=== PATIENT | female | born 1970 | race Caucasian/White ===

== ENCOUNTER → 2016-10-14 | Outpatient (CLI) | payer MEDICARE, MEDICAID ==
[~2016-10-14] MED LIST: AMANTADINE100 MG PO; AMITRIPTYLINE 225 MG PO; AVONEX30 MCG/0.5 MR; BACTRIM DS 8001 TAB PO; CITALOPRAM40 M1 PO; CLARITIN 10MG T10 MG PO; DIFLUCAN150 MG PO; GABAPENTIN300 M1 PO; IBUPROFEN200 MG PO; IBUPROFEN800 MG PO; MACROBID100 M3 PO; NORCO 325 MG-51 TAB PO; PEN-VK500 MG PO; PYRIDIUM 200MG200 MG PO; SEPTRA DS 800 M1 TAB PO; TESSALON PERLE100 M1 PO; ZITHROMAX Z PA250 MG PO; ZOFRAN ODT4 MG PO
[2016-10-14 14:18] LABS: HEMOGLOBIN 12.8 g/dL (12.2-16.2); LYMPH # 1.4 K/mm3 (0.7-4.5)
[2016-10-14 15:46] LABS: BUN 11 mg/dL (7-18)
[2016-10-14 15:47] LABS: GFR (ESTIMATED) 109 ML/MIN (59-)
== END ==
LOC: LAB 12:41
PROVIDERS: Nurse Practitioner Family
DX: G35 Multiple sclerosis (principal); E78.5 Hyperlipidemia, unspecified

== ENCOUNTER 2016-12-29 20:56 | Emergency (ER) | payer MEDICARE, MEDICAID ==
[~2016-12-29] VITALS: Ht 175.3 cm; Wt 117.9 kg
--- OUTSIDE RECORDS SUMMARY | 2016-12-29 21:05 | External Medical Summary Rpt ---
Author Author , GEOFF NICOLEDANITA Address Unknown Phone [email or web address] Care Team Providers Care Printed Circuit Boards Pinner Name Role Phone [facility], Unavailable Unavailable [employer] [facility], [place], Unavailable Unavailable [employer] [facility], [employer] BEINEKE, BEINEKE Unavailable Unavailable CARCAMO ANUM, CARCAMO Unavailable Unavailable ANUM BENAVIDES MAT, BENAVIDES MAT Unavailable Unavailable CELLAROSI - YORBA Unavailable Unavailable PAT, CELLAROSI - YORBA PAT [facility] Unavailable Unavailable [facility] Unavailable [facility]available [facility] CHALKLEY, CHALKLEY Unavailable Unavailable [facility], Unavailable Unavailable [facility] VERONIKA GIN, VERONIKA Unavailable Unavailable GIN NIRANJAN CORNELIA, NIRANJAN Unavailable Unavailable CORNELIA MAKAYLA KAYLIN, Unavailable Unavailable MAKAYLA KAYLIN BERRY NAN, BERRY Unavailable Unavailable NAN FILI CORNELIA, FILI Unavailable Unavailable CORNELIA FILI CORNELIA, FILI Unavailable Unavailable CORNELIA [facility] Unavailable Unavailable HOSPITA, [facility] NARCISO RHO, NARCISO Unavailable Unavailable RHO PRIETO GAR, PRIETO Unavailable Unavailable GAR [facility] Unavailable Unavailable INC, [facility] Unavailable Unavailable [facility] NIMESH DYLON, NIMESH Unavailable Unavailable DYL[facility], Unavailable Unavailable [facility] Unavailable Unavailable CENTER, [facility] MEGAN SAC, MEGAN SAC Unavailable Unavailable [facility] Un[facility] Unavailable GROUP PS, [facility] Un[facility] Unavailable [facility], [facility] KATYA REMINGTON, KAYTA REMINGTON Unavailable Unavailable KATYA REMINGTON, KATYA REMINGTON Unavailable Unavailable [facility] Unavailable Unavailable [facility], [facility] Un[facility], [facility] Un[facility], [facility] Unavailable Unavailable [facility], [facility] Unavailable [facility]available [facility]ING, [facility] JAYSHREE PRIYA, JAYSHREE PRIYA Unavailable Unavailable [facility] Unavailable Unavailable INTERNAL MED, [facility] CHARISMABERS WAL, CHARISMABERS Unavailable Unavailable WAL LUKINS WINSOME, LUKINS Unavailable Unavailable WINSOME [facility] Unavailable Unavailable SERVICES, [facility] MOGHADAMIAN OLIMPIA, Unavailable Unavailable [facility] MOUNA JACEY, MOUNA Unavailable Unavailable JACEY SHELIA KWA, SHELIA KWA Unavailable Unavailable [facility], Unavailable [facility]available [facility], [facility] RECHTIN SUPERVISOR PROCESS TESTING, RECHTIN Unavailable Unavailable SUPERVISOR PROCESS TESTING RENUSCH, RENUSCH Unavailable Unavailable SCALF ALEXEY, SCALF ALEXEY Unavailable Unavailable VICTOR BEATRIZ, VICTOR Unavailable Unavailable BEATRIZ ALVAREZ NATHAN, ALVAREZ NATHAN Unavailable Unavailable [facility] ANGELITA OLIMPIA, ANGELITA Unavailable Unavailable [facility], Unavailable Unavailable [facility] WALKER FOR, WALKER Unavailable Unavailable FOR [facility], [facility] Unavailable Unavailable MENDOZA ABEL, MENDOZA Unavailable Unavailable ABEL YOUNG JULIANN, YOUNG Unavailable Unavailable JULIANN ZIRONNIE MACKAY EDW, Unavailable Unavailable GEOVANNY MACKAY EDW BRIAN MAT, BRIAN MAT Unavailable Unavailable Purpose Continuity of Care Document - 04-06-2011 through 2016 Problems Code Diagnosis DOS Provider Status R1030 LOWER 08-14-2016 [facility] UNSPECIFIED R109 UNSPECIFIED 08-14-2016 [facility] R110 NAUSEA 08-14-2016 [facility] G35 MULTIPLE 05-10-2016 [facility] J0190 ACUTE 04-06-2016 [facility] SINUSITIS [facility], UNSPECIFIED PLLC J069 ACUTE UPPER 04-06-2016 [facility] RESPIRATORY [facility] INFECTION UNSPECIFIED M791 MYALGIA 04-06-2016 [facility] E785 HYPERLIPIDE 10-31-2015 [facility] UNSPECIFIED INC F55466 PAIN IN 10-21-2015 [facility] UNSPECIFIED [facility] ANKLE INTERNAL MED Z1231 ENCOUNTER 10-21-2015 [facility] SCREENING [facility] MAMMO MALIG INTERNAL NEOPLASM MED BREAST Z6841 BODY MASS 10-21-2015 [facility] INDEX BMI SHELBY 40.0-44.9 INTERNAL ADULT MED N3000 ACUTE 05-13-2015 [facility] CYSTITIS [facility], WITHOUT PLLC HEMATURIA N390 URINARY 05-13-2015 [facility] TRACT [facility], INFECTION PLLC SITE NOT SPECIFIED B76523 ACUTE 04-04-2015 [facility] W/O HOSPITAL RUPT EAR DRUM UNS EAR R05 COUGH 04-04-2015 [facility] J0100 ACUTE 03-20-2015 [facility] MAXILLARY PHYSIC[facility]ANS, SINUSITIS PLLC UNSPECIFIED K029 DENTAL 03-20-2015 [facility] UNSPECIFIED INC 340 MULTIPLE 09-10-2014 [facility] 72802 NEUROGENIC 09-10-2014 [facility], SERV NOS FOUNDATION 3862 VERTIGO OF 04-16-2014 [facility] SERV ORIGIN [facility] 92814 LOSS OF 04-16-2014 [facility] LABYRINTHIN SERV E [facility] REACTIVITY UNILATERAL 05607 UNSPECIFIED 04-16-2014 [facility] TINNITUS SERV [facility] 5990 URINARY 03-06-2014 [facility] INFECTION PHYS SITE NOT SPECIFIED 7881 DYSURIA 03-06-2014 [facility] PHYS 7804 DIZZINESS 02-22-2014 [facility] GIDDINESS FOUNDATIO 4610 ACUTE 02-06-2014 [facility] MAXILLARY SINUSITIS 26204 OTHER 01-09-2014 [facility] WINSOME CONDITIONS OF BRAIN 04713 UNSPECIFIED 12-10-2013 [facility] PERIPHER[facility] SERV VERTIGO FOUNDATION 41578 MUSCLE 12-10-2013 [facility] WE[facility]NESS SERV (GENERALIZE FOUNDATION D) 7802 SYNCOPE AND 12-10-2013 [facility] COLLAPSE [facility] 7840 HEADACHE 12-10-2013 [facility] 6926 CONTACT 2013 [facility] DERMATITIS& PHYSICIANS OTHER GROUP ECZEMA DUE TO PLANTS 90143 OTH NONSPC 12-22-2012 KATYA MACEDO ABN FINDNG RAD&OTH EXM BODY STRUCTURE 98804 PAIN IN 10-16-2012 [facility] JOINT, ORTHOPAEDIC ANKLE AND S PLC FOOT 2768 HYPOPOTASSE 09-08-2012 [facility] 63795 LEUKOCYTOPE 09-08-2012 [facility] UNSPECIFIED WAVERLY 10080 LEUKOCYTOSI 09-08-2012 [facility] UNSPECIFIED HOSPITA 68677 SPASM OF 09-08-2012 [facility] 04563 CRAMP OF 09-08-2012 [facility] HOSPITA 26392 NAUSEA WITH 09-03-2012 [facility] 98741 DIARRHEA 09-03-2012 [facility] 03673 ABDOMINAL 09-03-2012 [facility] PAIN, LEFT EMERGENCY UPPER SERVICES QUADRANT 4619 ACUTE 08-31-2012 [facility] SINUSITIS, HEALTHCARE UNSPECIFIED CENTER 462 ACUTE 08-31-2012 [facility], [facility] 7291 UNSPECIFIED 08-31-2012 [facility] MYOSITIS 04094 OTHER 08-31-2012 [facility] MALAISE [facility] [employer] [facility]ING 64625 NAUSEA 08-31-2012 [facility]ALTHCARE CENTER 13956 VOMITING 08-31-2012 [facility]ALTHCARE CENTER 0340 STREPTOCOCC 08-16-2012 [facility] HOPPER SORE EMERGENCY THROAT SERVICES 42033 UNSPECIFIED 08-16-2012 [facility] 66970 OTHER 08-16-2012 [facility] DISEASES OF COMMUNITY NASAL HOSPITA CAVITY AND SINUSES 8260 CLOSED 05-24-2012 [facility] FRACTURE OF EMERGENCY ONE OR SERVICES MORE PHALANGES OF FOOT 08567 CONTUSION 05-24-2012 [facility] OF FOOT EMERGENCY SERVICES 5225 PERIAPICAL 03-16-2012 [facility] WITHOUT SINUS 5259 UNSPECIFIED 03-16-2012 [facility] DISORDER SERV TEETH&SUPPO FOUNDATIO RTING STRUCTURES 67515 OT COMPS 02-29-2012 [facility] DUE OT ORTHOPAEDIC INTRL S PLC ORTHOPED DEVICE IMPL&GFT 7295 PAIN IN 01-13-2012 [facility] SOFT COMMUNITY TISSUES OF HOSPITA LIMB V1251 PERSONAL 12-21-2011 [facility] HISTORY, [facility] VENOUS HOSPITA THROMBOSIS AND EMBOLISM V5401 ENCOUNTER 12-21-2011 [place] [facility] OF ANESTHESIA INTERNAL GROUP PS FIXATION DEVICE V7283 OTHER 12-20-2011 [facility] SPECIFIED [facility] PRE-OPERATI HOSPITA VE EXAMINATION 94019 NONUNION OF 12-09-2011 [facility] 22927 OPEN 12-09-2011 [facility] FRACTURE SERV UNSPECIFIED FOUNDATIO PART FIBULA W/TIBIA 90054 [facility] 12-09-2011 [facility] INT ORTHOPEDIC DEVC IMPL&GFT 60882 INF&INFLAM 12-09-2011 [facility] REACTION SERV DUE INTRL FOUNDATIO JOINT PROSTHESIS V5409 OT 12-09-2011 [facility] SERV INVOLVING FOUNDATIO INTERNAL FIXATION DEVICE V5416 AFTERCARE 12-09-2011 [facility] TRAUMATIC FOUNDATIO FRACTURE LOWER LEG 92137 OTHER 12-02-2011 [facility] CHRONIC EMERGENCY PAIN SERVICES V1551 PERSONAL 12-02-2011 [facility] HISTORY OF EMERGENCY TRAUMATIC SERVICES FRACTURE 8920 OPEN WOUND 10-22-2011 [facility] FT NO TOE EMERGENCY ALONE SERVICES WITHOUT MENTION COMP E8490 PLACE OF 10-22-2011 [facility] OCCURRENCE, [facility] HOME HOSPITA E9208 ACC CAUSED 10-22-2011 [facility] SPEC EMERGENCY CUT&PIERCIN SERVICES G INSTRUM/OBJ S 11203 CLOSED 09-13-2011 [facility] [place] FRACTURE OF ORTHOPAEDIC SHAFT OF S PLC TIBIA 28210 AC VERNA 08-11-2011 [facility]MBO & COMMUNITY THROMB HOSPITA UNSPEC DEEP VES LOWER EXT V5861 LONG-TERM 08-11-2011 [facility] (CURRENT) [facility] USE OF HOSPITA ANTICOAGULA NTS V571 OTHER 07-05-2011 [facility] PHYSICAL COMMUNITY THERAPY HOSPITA V4589 OTHER 07-01-2011 [facility] POSTSURGICA COMMUNITY L STATUS HOSPITA OTHER 8248 UNSPECIFIED 04-06-2011 [place] [facility] FRACTURE OF GROUP PSC ANKLE V537 FITTING AND 04-06-2011 [facility] [place] [facility] OF ORTHOPEDIC DEVICE Medications Na ND Rx Da Fi Fi Am Da Di Ph RX Ph St me C No te ll ll ou ys ag ar # ys at rm s nt no ma ic us Or Da si cy ia de te s n re d LO 00 06 06 30 30 00 RI Ac RA 78 -0 -3 .0 00 TE ti TA 15 1- 0- 00 01 ve DI 07 20 20 15 AI NE 70 17 17 49 D 1 41 PH 10 AR MA MG CY TA #3 BL 93 ET 8 Procedures Procedure [place] [address] [facility] ABDOMEN & MEDICAL PELVIS IMAGING W/O ASS CONTRAST MATERIAL COLLECTIO 96726 ANY AGARWAL N VENOUS 6 [facility] BLOOD INC INC VENIPUNCT URE COMPREHEN 10028 ANY [facility]WAL SIVE 6 [facility] METABOLIC INC INC PANEL LIPID 83350 ANY AGARWAL PANEL 6 [facility]OS[facility] INC INC BLOOD 75331 ANY AGARWAL COUNT 6 [facility] COMPLETE INC INC AUTO&AUTO DIFRNTL WBC SUSCEPTIB 27069 ANY AG[facility]WAL LTY STDY 5 [facility] ANTIMICRB INC INC IAL MICRO/AGA R DILUTJ URNLS DIP 39415 ANY AGARWAL 5 [facility] STICK/TAB INC INC LET REAGENT AUTO MICROSCOP Y CULTURE 93262 ANY AGARWAL BACTERIAL 5 [facility] INC INC QUANTTATI VE COLONY COUNT URINE CULTURE 70717 ANY AG[facility] BCT 5 [facility] ISOL&PRSM INC INC PTV ID ISOLATE EA URINE INJECTION J0696 ANY NIRANJAN 5 [facility] NE SODIUM PER 250 MG INJECTION J1040 ANY NIRANJAN 5 [facility] DNISOLONE ACETATE 80 MG THERAPEUT 15653 ANY NIRANJAN IC 5 [facility] TIC/DX INJECTION SUBQ/IM COMPUTER- 42299 ANY AGARWAL AIDED 5 [facility] DETECTION INC INC SCREENING MAMMOGRAP HY SCREENING G0202 ANY AGARWAL 5 [facility] MAMMOGRAP INC INC HY NICOLÁS INCL CAD WHEN PERFORMD COLLECTIO 74315 ANY Mendoza VENOUS 5 MEM HOS[facility]OS[facility] BLOOD INC INC VENIPUNCT URE CYANOCOBA 03447 ANY AGARWAL SHANIQUA 5 [facility] VITAMIN INC INC B-12 LIPID 37743 ANY AGARWAL PANEL 5 [facility] INC INC BLOOD 82701 ANY AGARWAL COUNT 5 [facility] COMPLETE INC INC AUTO&[place] [address] ANY AGARWAL THYROID 5 [facility] STIMULATI INC INC NG HORMONE TSH COMPREHEN 94284 ANY AGARWAL SIVE 5 [facility] METABOLIC INC INC PANEL COMPREHEN 65707 [facility] 5 Y Y [facility] PANEL BLOOD 34114 [facility] 5 Y Y [facility] AUTOMATED COLLECTIO 00750 [facility] VENOUS 5 Y Y BLOOD [facility] VENIPUNCT URE COLLECTIO 93612 ANY AGARWAL N VENOUS 5 [facility] [place] [address] ANY AGARWAL THYROID 5 MEM HOSP [facility] HOS[facility] STIMULATI INC INC NG HORMONE TSH BLOOD 76356 ANY AGARWAL COUNT 5 MEM HOS[facility]OS[facility] COMPLETE INC INC AUTO&AUTO DIFRNTL WBC HEPATIC 94931 ANY AGARWAL FUNCTION 5 MEM HOS[facility] HOSP PANEL INC INC VSTBLR 98713 [facility] BENAVIDES MAT FUNCJ 4 MEDICAL NYSTAG SERV FOVL&PERP FOUNDATIO H STIMJ N OSCIL TRK CALORIC 66729 MIKE BENAVIDES MAT VESTIBULA 4 MEDICAL R TEST EA SERV FOUNDATIO IRRIGATIO N N W/RECORD SUSCEPTIB 88885 ANY AGARWAL LTY STDY 4 MEM HOSP [facility] HOS[facility] ANTIMICRB INC INC IAL MICRO/AGA R DILUTJ URNLS DIP 46418 ANY AGARWAL 4 [facility]OS[facility] STICK/TAB INC INC LET REAGENT AUTO MICROSCOP Y CULTURE 08321 ANY AGARWAL BCT 4 MEM HOS[facility]OS[facility] ISOL&PRSM INC INC PTV ID ISOLATE EA URINE CULTURE 11865 ANY AGARWAL BACTERIAL 4 MEM HOS[facility]OS[facility] INC INC QUANTTATI VE COLONY COUNT URINE URINE 18951 ANY AGARWAL 4 MEM HOS[facility] HOS[facility] TEST INC INC VISUAL COLOR CMPRSN METHS INJECTION J1040 [facility] PENN 4 CORNELIA CORNELIA METHYLPRE DNISOLONE ACETATE 80 MG THERAPEUT 95937 [facility] IC 4 CORNELIA CORNELIA PROPHYLAC TIC/DX INJECTION SUBQ/IM MRI BRAIN 00893 [facility] BRAIN 4 Y Y STEM W/O HOSPITAL HOSPITAL W/CONTRAS T MATERIAL INJECTION A9579 [facility] 4 Y Y [facility] M BASED MR CONTRAST NOS ML INJECTION J2765 [facility] 4 Y Y METOCLOPR [facility] AMIDE HCL UP TO 10 MG COMPREHEN 92598 [facility] SIVE 4 Y Y METABOLIC [facility] PANEL INFUSION J7050 [facility] NORMAL 4 Y Y SALINE [facility] SOLUTION 250 CC INJECTION J1885 [facility] 4 Y Y KETOROLAC [facility] TROMETHAM INE PER 15 MG INJ J2930 [facility] METHYLPRD 4 Y Y NISOLONE [facility] SODIUM SUCCNAT TO 125 MG BLOOD 08975 [facility] COUNT 4 Y Y COMPLETE [facility] AUTOMATED ECG 53759 [facility] ROUTINE 4 Y Y ECG [facility] W/LEAST 12 LDS TRCG ONLY W/O I&R ECG 89090 [facility] ROUTINE 4 MEDICAL NAN ECG SERV W/LEAST FOUNDATIO 12 LDS N I&[place] [address] [facility] 4 Y Y [facility] INJECTION J1100 [facility] 4 PHYSICIAN PHYSICIAN DEXAMETHO S GROUP S GROUP SONE SODIUM PHOSPHATE 1 MG THERAPEUT 83972 [facility] IC 4 PHYSICIAN PHYSICIAN PROPHYLAC S GROUP S GROUP TIC/DX INJECTION SUBQ/IM INJECTION J1040 [facility] 4 PHYSICIAN PHYSICIAN METHYLPRE S GROUP S GROUP DNISOLONE ACETATE 80 MG MRI BRAIN 87742 SHELIA KWA SHELIA KWA BRAIN 4 STEM W/O W/CONTRAS T MATERIAL SBSQ 29059 [facility] 3 DYLON DYLON CARE/DAY 25 MINUTES MRI BRAIN 61982 KATYA MACEDO BRAIN 3 STEM W/O W/CONTRAS T MATERIAL MRI 46769 KATYA MACEDO SPINAL 3 CANAL THORACIC W/O & W/CONTR MATRL INITIAL 64717 [facility] 3 DYLON DYLON CARE/DAY 70 MINUTES MRI 13342 KATYA MACEDO SPINAL 3 CANAL CERVICAL W/O & W/CONTR MATRL RADIOLOGI 41758 [facility] C 3 [place] [facility] EXAMINATI ORTHOPAED ON TIBIA [facility] & FIBULA 2 VIEWS BLOOD 97708 [facility] COUNT 3 N N COMPLETE [facility] AUTOMATED HOSPITA HOSPITA BLOOD 21269 [facility] COUNT 3 N N SMEAR [facility] MCRSCP HOSPITA HOSPITA W/MNL DIFRNTL WBC COUNT BASIC 11103 [facility] METABOLIC 3 N N PANEL [facility] CALCIUM HOSPITA HOSPITA TOTAL COLLECTIO 51281 [facility] N VENOUS 3 N N BLOOD [facility] VENIPUNCT HOSPITA HOSPITA URE HETEROPHI 43296 [facility] LE 3 AMERIC AMERIC ANTIBODIE HOLDING HOLDING S SCREEN GENERAL 18655 [facility] 3 AMERIC AMERIC PANEL HOLDING HOLDING ANTIBODY 57051 [facility] CYTOMEGAL 3 AMERIC AMERIC OVIRUS HOLDING HOLDING CMV IGM ANTIBODY 44159 [facility] CYTOMEGAL 3 AMERIC AMERIC OVIRUS HOLDING HOLDING CMV IAADIADOO 82844 [place] [facility] LABS, [place] [address] [facility] CE[facility] PHLX/PHLG 2 EMERGENCY - YORBA OTH/THN SERVICES PAT GRT TOE W/O MANJ RADEX 36399 [facility] FOOT 2 N N [facility] MINIMUM 3 HOSPITA HOSPITA VIEWS INJECTION A9579 [facility] 2 Y Y [facility] M BASED MR CONTRAST NOS ML MRI BRAIN 95551 [facility] BRAIN 2 Y Y STEM W/O [facility] W/CONTRAS T MATERIAL INFUSION J7030 [facility] NORMAL 2 Y Y [facility] SOLUTION 1000 CC RADEX 40283 [facility] ANKLE 2 [place] [facility] COMPLETE ORTHOPAED MINIMUM 3 ICS PLC VIEWS DUP-SCAN 87800 [facility] XTR VEINS 2 N N [facility] UNILATERA HOSPITA HOSPITA L/LIMITED STUDY RADEX 58869 [facility] ANKLE 2 [place] AB[place] COMPLETE ORTHOPAED MINIMUM 3 ICS PLC VIEWS INJECTION J3010 [facility] FENTANYL 2 N N CITRATE [facility] 0.1 MG HOSPITA HOSPITA INJECTION J2250 [facility] 2 N N MIDAZOLAM [facility] HCL PER HOSPITA HOSPITA 1 MG REMOVAL 24435 [facility] IMPLANT 2 [place] AB[facility] DEEP ORTHOPAED ICS PLC RADIOLOGI 23656 [facility] C 2 N N EXAMINATI [facility] ON ANKLE HOSPITA HOSPITA 2 VIEWS ANES OPEN 65516 [place] [facility] PROC 2 ANESTHESI BEATRIZ BONES A GROUP LOWER PS LEG/ANKLE /FOOT NOS FLUOROSCO 29631 [facility] PY SPX UP 2 N N TO 1 [facility] HOUR HOSPITA HOSPITA PHYS/QHP TIME COLLECTIO 87159 [facility] N VENOUS 2 N N BLOOD [facility] VENIPUNCT HOSPITA HOSPITA URE BLOOD 87274 [facility] COUNT 2 N N [facility] AUTO&AUTO HOSPITA HOSPITA DIFRNTL WBC GONADOTRO 90465 [facility] PIN 2 N N [facility] HOSPITA HOSPITA QUALITATI VE BASIC 86938 [facility] METABOLIC 2 N N PANEL [facility] CALCIUM HOSPITA HOSPITA TOTAL RADEX 28705 [facility] AN[facility]LE 2 Y Y COMPLETE HOSPITAL HOSPITAL MINIMUM 3 VIEWS RADIOLOGI 70758 [facility] C 2 Y Y EXAMINATI [facility] ON TIBIA & FIBULA 2 VIEWS RADIOLOGI 58509 [facility] [place] BRIAN MAT C 2 RADIOLOGY EXAMINATI ON TIBIA & FIBULA 2 VIEWS RADEX 69747 [facility] [place] BRIAN MAT CALCANEUS 2 RADIOLOGY MINIMUM 2 VIEWS RADEX 69936 [facility] ANKLE 2 [place] AB[facility] COMPLETE ORTHOPAED MINIMUM 3 ICS PLC VIEWS RADEX 59312 [facility] [place] SCALF ALEXEY FOOT 2 RADIOLOGY COMPLETE MINIMUM 3 VIEWS IM ADM 08172 [facility] PRQ ID 2 N N SUBQ/IM [facility] NJXS 1 HOSPITA HOSPITA VACCINE DUP-SCAN 59848 [facility] XTR VEINS 2 N N [facility] UNILATERA HOSPITA HOSPITA L/LIMITED STUDY RADIOLOGI 51405 [facility] C 2 [place] [facility] EXAMINATI ORTHOPAED ON TIBIA [facility] & FIBULA 2 VIEWS DUP-SCAN 38965 [facility] XTR VEINS 2 N N [facility] HOSPITA HOSPITA L/LIMITED STUDY RADIOLOGI 31147 [facility] C 2 [place] EXAMINATI ORTHOPAED ON TIBIA [facility] & FIBULA 2 VIEWS ANK FT L1906 [facility] ORTHOS 2 [facility] MX-LIG ORTHOPAED ORTHOPAED ANK SUPT IC IC PREFB OFF SHELF PROTHROMB 12574 [facility] IN TIME 2 N N [facility] HOSPITA HOSPITA WALKING L4360 [facility] BOOT 2 [facility] PNEUMATC ORTHOPAED ORTHOPAED &/ VACUUM IC IC PREFAB CUSTM FIT RADIOLOGI 22036 [facility] C 2 [place] [facility] EXAMINATI ORTHOPAED ON TIBIA [facility] & FIBULA 2 VIEWS PROTHROMB 78028 [facility] IN TIME 2 N N [facility] HOSPITA HOSPITA PHYSICAL 99081 [facility] THERAPY 2 N N EVALUATIO [facility] N HOSPITA HOSPITA THERAPEUT 91905 [facility] IC PX 1/> 2 N N AREAS [facility] EACH 15 HOSPITA HOSPITA MIN EXERCISES DUP-SCAN 97466 [facility] XTR VEINS 2 N N [facility] L/LIMITED STUDY PROTHROMB 45911 [facility] IN TIME 2 N N [facility] HOSPITA HOSPITA ANKLE L4350 [facility] CONTROL 2 [facility] ORTHOSIS ORTHOPAED ORTHOPAED STIRRUP IC IC STYL RIGID PREFAB RADIOLOGI 98691 MENDOZA Arch[place] 2 ABEL ABEL EXAMINATI ON TIBIA & FIBULA 2 VIEWS PROTHROMB 62350 [facility] IN TIME 1 N N [facility] HOSPITA HOSPITA PROTHROMB 18621 [facility] IN TIME 1 N N [facility] HOSPITA PROTHROMB 80289 [facility] IN TIME 1 N N [facility] HOSPITA HOSPITA RADIOLOGI 83685 [facility] [place] 1 ABEL ABEL EXAMINATI ON TIBIA & FIBULA 2 VIEWS PROTHROMB 07449 [facility] IN TIME 1 N N [facility] HOSPITA HOSPITA DUP-SCAN 46814 [facility] XTR VEINS [facility] N [facility] L/LIMITED STUDY RADIOLOGI 25850 M[facility] [place] 1 ABEL ABEL EXAMINATI ON TIBIA & [place] [address] [facility] 1/> AREAS 1 N N EA 15 [facility] MIN GAIT HOSPITA HOSPITA TRAINJ W/STAIR INJECTION J2275 [facility] MORPHINE 1 N N [facility] PER 10 MG HOSPITA HOSPITA PHYSICAL 85042 [facility] THERAPY 1 N N [facility] N HOSPITA HOSPITA REMOVAL 17556 [facility] DONALDSON IMPLANT 1 ABEL ROMAN DEEP BONE 7807 [facility] GRAFT OF 1 N N [facility] AND [facility] FIBULA HOSPITA HOSPITA OPEN 7936 [facility] REDUCTION 1 N N FRACTURE [facility]ITY [facility] HOSPITA HOSPITA TIBIA&FIB W/INTERNA L FIX INJECTION J2275 [facility] MORPHINE 1 N N [facility] PER 10 MG HOSPITA HOSPITA RADIOLOGI 72674 [facility] MIKE STUART C 1 RADIOLOGY RHO EXAMINATI ON ANKLE 2 VIEWS HOSPITAL G0378 [facility] OBSERVATI 1 N N ON [facility] SERVICE HOSPITA HOSPITA PER HOUR ANES OPEN 72331 MIKE CROOK PROC 1 ANESTHESI I JR EDW BONES A GROUP LOWER PSC LEG/ANKLE /FOOT NOS FLUOROSCO 70736 [facility] PY SPX >1 1 N N [facility] PHYS/QHP HOSPITA HOSPITA TIME RADIOLOGI 19298 [facility] MIKE STUART C 1 RADIOLOGY RHO EXAMINATI ON TIBIA & FIBULA 2 VIEWS REPAIR 75928 [facility] NONUNION/ 1 N N MALUNION [facility] TIBIA W/O HOSPITA HOSPITA GRAFT OPTX 03123 [facility] MENDOZA TIBIAL 1 ABEL ABEL SHFT FX W/PLATE/S CREWS W/WO CERCLAGE INJECTION J2250 [facility] 1 N N [facility] HCL PER HOSPITA HOSPITA 1 MG BLOOD 17204 [facility] COUNT 1 N N [facility] N HOSPITA HOSPITA BLOOD 15123 [facility] COUNT 1 N N HEMATOCRI COMM[facility]ITY [facility] T HOSPITA HOSPITA INJECTION J3010 [facility] FENTANYL 1 N N CITRATE [facility] 0.1 MG HOSPITA HOSPITA UNLISTED 65529 [facility] PROCEDURE 1 N N COMMUNITY COMMUNITY LEG/ANKLE HOSPITA HOSPITA Encounters Encounter Start End Date Code Location Performer Type Date EMERGENCY 92375 [facility] DEPT 7 7 [facility]YSICIAN [facility]IS[facility] HIGH SEVERITY& THREAT FUNC OFFICE 52112 [facility] OUTPATIEN 6 6 MEDICAL T VISIT SERV 40 [facility] MINUTES N HOSP[facility] ANY - 6 6 [facility] T EMERGENCY 88136 NINO [facility] 6 6 PHYSICIAN [facility] S, [facility] T VISIT MODERATE SEVERITY EMERGENCY 20354 ANY 6 6 [facility] DEPART[facility] INC T VISIT LIMITED/M [facility] ANY - 6 6 [facility] OUTPATIEN INC T OFFICE 24271 [place] [facility] 6 6 [facility] T [facility]ISIT INTERNAL 25 MED MINUTES EMERGENCY 16350 ANY 5 5 [facility] DEPARTMEN INC T VISIT LOW/MODER SEVERITY EMERGENCY 76933 NINO PENN 5 5 PHYSICIAN [facility] S, [facility] T VISIT HIGH/URGE NT SEVERITY HOSPITAL ANY - 5 5 [facility] OUTPATIEN INC T OFFICE 34532 ANY OMALLEY 5 5 [facility] T VISIT HOSP[facility] 15 MINUTES EMERGENCY 08752 NINO CAANLES 5 5 PHYSICIAN [facility] S, [facility] T VISIT MODERATE SEVERITY HOSPITAL ANY - 5 5 [facility] OUTPATIEN INC T EMERGENCY 20953 ANY 5 5 [facility] DEPARTMEN INC T VISIT LOW/MODER SEVERITY HOSPITAL ANY - 5 5 [facility] OUTPATIEN INC T HOSPITAL ANY - 5 5 [facility] OUTPATIEN INC T OFFICE 62801 [facility] OUTPATIEN 5 5 Y T VISIT 5 HOSPITAL MINUTES OFFICE 23572 MIKE MOUNA OUTROBERTS CHAPELEN 5 5 MEDICAL JACEY T VISIT SERV 25 FOUNDATIO MINUTES HOSPITAL UNIVERSIT - 5 5 Y [facility] ANY - 5 5 [facility] EMERGENC[facility] 53804 KIT [facility] 4 4 ZACHARY DEPARTMEN EMERGENCY T VISIT PHYS HIGH/URGE NT SEVERITY EMERGENCY 51235 ANY 4 4 [facility] DEPARTMEN INC T VISIT LOW/MODER SEVERITY HOSPITAL ANY - 4 4 [facility] T OFFICE 34066 MIKE BENAVIDES MAT CONSULTAT 4 4 MEDICAL ION SERV NEW/ESTAB FOUNDATIO PATIENT 40 MIN OFFICE 31068 [facility] 4 4 CORNELIA CORNELIA T VISIT 15 [facility] UNIVERSIT - 4 4 Y [facility] T EMERGENCY 90738 MIKE VILLANUEVA 4 4 MEDICAL WAL DEPARTMEN SERV T VISIT FOUNDATIO HIGH/URGE N NT SEVERITY HOSPITAL UNIVERSIT - 4 4 Y [facility] T OFFICE 21949 NIMESH BEAVERS [facility] 4 4 DYLON DYLON T VISIT 25 MINUTES OFFICE 55565 [facility] 4 4 PHYSICIAN T VISIT S GROUP 15 MINUTES HOSPITAL UNIVERSIT [facility] 4 4 Y [facility] T OFFICE 73579 [facility] 4 4 PHYSICIAN T NEW 20 S GROUP MINUTES OFFICE 15951 [facility] 3 3 Y T VISIT 5 HOSPITAL [facility] UNIVERSIT [facility] 3 3 Y [facility] T OFFICE 81756 CARLOS ALBERTO [facility] 3 3 ANUM ROWAN T VISIT 25 MINUTES OFFICE 65431 ANTONIO ALVAREZ [facility] OUTPATIEN 3 3 T VISIT 15 MINUTES OFFICE 01120 [facility] OUTPATIEN 3 3 [place] AB[place] T VISIT ORTHOPAED 25 [facility] MINUTES 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 67183 MIKE MARTELL PRIYA OUTPATIEN 3 3 MEDICAL T VISIT SERV 15 FOUNDATIO MINUTES [facility] EM[facility] 68362 ANUEL CROWELLAROSI 2 2 EMERGENCY - YORBA DEPARTMEN SERVICES PAT T VISIT HIGH/URGE NT SEVERITY EMERGENCY 58205 [facility] 2 2 N DEPARTMEN COMMUNITY T VISIT HOSPITA MODERATE SEVERITY HOSPITAL UNIVERSIT - 2 2 Y [facility] T OFFICE 20632 MIKE DELACRUZ OUTROBERTS CHAPELEN 2 2 MEDICAL T VISIT SERV 25 FOUNDATIO MINUTES EMERGENCY 69472 MIKE RICHARDSON 2 2 MEDICAL JULIANN DEPARTMEN SERV T VISIT FOUNDATIO MODERATE SEVERITY HOSPITAL UNIVERSIT - 2 2 Y [facility] T EMERGENCY 07340 UNIVERSIT 2 2 Y [facility] T VISIT [facility]OW/MODER SEVERITY [facility] 2 2 N [facility] HOSPITA [facility]ICE 46749 [place] MOGHADAM[place] OUTPATIEN 2 2 MEDICAL AN OLIMPIA T NEW 30 SERV MINUTES [facility] UNIVERSIT [facility] 2 2 Y [facility] T OFFICE 55910 [facility] 2 2 [place] T [facility]ISIT ORTHOPAED 15 [facility] 2 2 N [facility] 04489 ANUEL PRIETO 2 2 EMERGENCY GAR [facility] T VISIT HIGH/URGE NT SEVERITY EMERGENCY 74221 [facility] 2 N [facility] T [facility]ISIT [facility] MODERATE SEVERITY OFFICE 37466 [facility] 2 2 [place] VISIT ORTHOPAED 25 [facility] 36099 [facility] N [facility] T [facility]ISIT [facility] MODERATE [facility]VERITY [facility] 43726 [facility] 2 2 [place] T VISIT ORTHOPAED 15 [facility] 98545 [facility] 2 2 [place] VISIT ORTHOPAED 15 [facility] 67427 [facility] 2 2 [place] T [facility]ISIT ORTHOPAED 15 ICS [facility] 2 2 N [facility] N [facility] 2 2 N OUT[facility] 2 2 N [facility] 10580 [facility] 83634 [facility] 1 N T [facility]IT [facility] 21399 [facility] 1 N T [facility]IT [facility] 65880 [facility] 1 1 N T VISIT 5 [facility] 99733 [facility] 1 1 N T VISIT 5 [facility] 1 1 N [facility] 1 1 N OUTPATIEN [facility] 1 1 N INPATIENT [facility] HOS[facility]
--- OUTSIDE RECORDS SUMMARY | 2016-12-29 21:05 | External Medical Summary Rpt ---
Author Author , GEOFF NICOLEDANITA Address Unknown Phone [email or web address] Care Team Providers Care Electrical Technician Instructor Name Role Phone [email or web address], Unavailable Unavailable AisleBuyer, [facility], Unavailable Unavailable [facility], [facility] BEINEKE, BEINEKE Unavailable Unavailable CARCAMO ANUM, CARCAMO Unavailable Unavailable ANUM BENAVIDES MAT, BENAVIDES MAT Unavailable Unavailable CELLAROSI - YORBA Unavailable Unavailable PAT, CELLAROSI - YORBA PAT [facility] Unavailable Unavailable [facility], [facility] Unavailable [facility]available [facility] CHALKLEY, CHALKLEY Unavailable Unavailable [facility], Unavailable Unavailable [facility] VERONIKA GIN, VERONIKA Unavailable Unavailable GIN NIRANJAN CORNELIA, NIRANJAN Unavailable Unavailable CORNELIA MAKAYLA KAYLIN, Unavailable Unavailable MAKAYLA KAYLIN BERRY NAN, BERRY Unavailable Unavailable NAN FILI CORNELIA, FILI Unavailable Unavailable CORNELIA FILI CORNELIA, FILI Unavailable Unavailable CORNELIA [facility] Unavailable Unavailable HOSPITA, [facility] NARCISO RHO, NARCISO Unavailable Unavailable RHO PRIETO GAR, PRIETO Unavailable Unavailable GAR [facility] Unavailable Unavailable INC, [facility] Unavailable Unavailable HOSPITAL, [facility] NIMESH DYLON, NIMESH Unavailable Unavailable DYLON [facility], Unavailable Unavailable [facility] Unavailable Unavailable CENTER, [facility] MEGAN SAC, MEGAN SAC Unavailable Unavailable [facility] Un[facility] Unavailable [facility] PS, [facility] Unavailable Unavailable [facility], [facility] KATYA REMINGTON, KATYA REMINGTON Unavailable Unavailable KATYA REMINGTON, KATYA REMINGTON [...] Unavailable [place] Unavailable Unavailable INTERNAL MED, [facility] CHARISMABERS WAL, CHARISMABERS Unavailable Unavailable WAL LUKINS WINSOME, LUKINS Unavailable Unavailable WINSOME [facility] Unavailable Unavailable SERVICES, [facility] MOGHADAMIAN OLIMPIA, Unavailable Unavailable [facility] MOUNA JACEY, MOUNA Unavailable Unavailable JACEY SHELIA KWA, SHELIA KWA Unavailable Unavailable [facility], Un[facility], [facility] RECHTIN NEONATAL SOCIAL WORKER, RECHTIN Unavailable Unavailable NEONATAL SOCIAL WORKER RENUSCH, RENUSCH Unavailable Unavailable SCALF ALEXEY, SCALF ALEXEY Unavailable Unavailable VICTOR BEATRIZ, VICTOR Unavailable Unavailable BEATRIZ ALVAREZ NATHAN, ALVAREZ NATHAN Unavailable Unavailable [facility] ANGELITA OLIMPIA, ANGELITA Unavailable Unavailable [facility], Unavailable Unavailable [facility] FOR, WALKER Unavailable Unavailable [facility] [...] PHYSICIANS, PAIN PLLC UNSPECIFIED R109 UNSPECIFIED 08-14-2016 [facility] R110 NAUSEA 08-14-2016 [facility] G35 MULTIPLE 05-10-2016 [facility] J0190 ACUTE 04-06-2016 [facility] SINUSITIS PH[facility]ANS, UNSPECIFIED PLLC J069 ACUTE UPPER 04-06-2016 [facility] RESPIRATORY PLL[facility] INFECTION UNSPECIFIED M791 MYALGIA 04-06-2016 [facility] INC E785 HYPERLIPIDE 10-31-2015 [facility] HOSP UNSPECIFIED INC [id number] PAIN IN 10-21-2015 [facility] UNSPECIFIED [place] ANKLE INTERNAL MED Z1231 ENCOUNTER 10-21-2015 [facility] SCREENING [place] MAMMO MALIG INTERNAL NEOPLASM MED BREAST Z6841 BODY MASS 10-21-2015 [facility] INDEX BMI [place] 40.0-44.9 INTERNAL ADULT MED N3000 ACUTE 05-13-2015 [facility] CYSTITIS [facility]ANS, WITHOUT PLLC HEMATURIA N390 URINARY 05-13-2015 [facility] TRACT [facility], INFECTION PLLC SITE NOT SPECIFIED E02904 ACUTE 04-04-2015 [facility] W/O HOSPITAL RUPT EAR DRUM UNS EAR R05 COUGH 04-04-2015 [facility] J0100 ACUTE 03-20-2015 [facility] MAXILLARY PHYSICIANS, SINUSITIS PLLC UNSPECIFIED K029 DENTAL 03-20-2015 [facility] UNSPECIFIED INC 340 MULTIPLE 09-10-2014 [facility] 52308 NEUROGENIC 09-10-2014 [place] [facility] SERV NOS [facility] 3862 VERTIGO OF 04-16-2014 [place] [facility] ORIGIN [facility] 37140 LOSS OF 04-16-2014 [place] [facility] LABYRINTHIN SERV E [facility] REACTIVITY UNILATERAL 83805 UNSPECIFIED 04-16-2014 [place] [facility]INNITUS [facility] 5990 URINARY 03-06-2014 [facility] INFECTION PHYS SITE NOT SPECIFIED 7881 DYSURIA 03-06-2014 [facility] PHYS 7804 DIZZINESS 02-22-2014 [place] [facility] GIDDINESS FOUNDATIO 4610 ACUTE 02-06-2014 [facility] MAXILLARY SINUSITIS 02254 OTHER 01-09-2014 [facility] WINSOME CONDITIONS OF BRAIN 82069 UNSPECIFIED 12-10-2013 [place] [facility]HER[facility] VERTIGO [facility] 30767 MUSCLE 12-10-2013 [place] [facility] SERV (GENERALIZE [facility]OUND[facility] D) 7802 SYNCOPE AND 12-10-2013 [place] [facility] 7840 HEADACHE 12-10-2013 [facility] 6926 CONTACT 2013 [facility] DERMATITIS& PHYSICIANS OTHER GROUP ECZEMA DUE TO PLANTS 22032 OTH NONSPC 12-22-2012 KATYA MACEDO ABN FINDNG RAD&OTH EXM BODY STRUCTURE 17209 PAIN IN 10-16-2012 [facility] [place] JOINT, [facility]IC ANKLE AND S PLC FOOT 2768 HYPOPOTASSE 09-08-2012 [facility] 83630 LEUKOCYTOPE 09-08-2012 [facility] UNSPECIFIED ELMA 91959 LEUKOCYTOSI 09-08-2012 [facility] UNSPECIFIED HOSPITA 24686 SPASM OF 09-08-2012 [facility] 14064 CRAMP OF 09-08-2012 [facility] HOSPITA 47995 NAUSEA WITH 09-03-2012 [facility] 65702 DIARRHEA 09-03-2012 [facility] 90635 ABDOMINAL 09-03-2012 [facility] PAIN, LEFT EMERGENCY UPPER SERVICES QUADRANT 4619 ACUTE 08-31-2012 [facility] SINUSITIS, HEALTHCARE UNSPECIFIED CENTER 462 ACUTE 08-31-2012 [facility] 7291 UNSPECIFIED 08-31-2012 [facility] MYOSITIS 77137 OTHER 08-31-2012 [facility] [employer] [employer] 43292 NAUSEA 08-31-2012 [facility]ALTHCARE CENTER 55851 VOMITING 08-31-2012 [facility]ARE CENTER 0340 STREPTOCOCC 08-16-2012 [facility] HOPPER SORE EMERGENCY THROAT SERVICES 63650 UNSPECIFIED 08-16-2012 [facility] 99275 OTHER 08-16-2012 [facility] DISEASES OF COMMUNITY NASAL HOSPITA CAVITY AND SINUSES 8260 CLOSED 05-24-2012 [facility] FRACTURE OF EMERGENCY ONE OR SERVICES MORE PHALANGES OF FOOT 52130 CONTUSION 05-24-2012 [facility] OF FOOT EMERGENCY SERVICES 5225 PERIAPICAL 03-16-2012 [facility] WITHOUT SINUS 5259 UNSPECIFIED 03-16-2012 [place] [facility] DISORDER [facility] TEETH&SUPPO FOUNDATIO RTING STRUCTURES 27297 OT COMPS 02-29-2012 [facility] [place] DUE OT ORTHOPAEDIC INTRL S PLC ORTHOPED DEVICE IMPL&GFT 7295 PAIN IN 01-13-2012 [facility] SOFT COMMUNITY TISSUES OF HOSPITA LIMB V1251 PERSONAL 12-21-2011 [facility] HISTORY, [facility] VENOUS HOSPITA THROMBOSIS AND EMBOLISM V5401 ENCOUNTER 12-21-2011 [facility] OF ANESTHESIA INTERNAL GROUP PS FIXATION DEVICE V7283 OTHER 12-20-2011 [facility] SPECIFIED [facility] PRE-OPERATI HOSPITA VE EXAMINATION 47513 NONUNION OF 12-09-2011 [facility] 08206 OPEN 12-09-2011 [place] [facility] FRACTURE SERV UNSPECIFIED FOUNDATIO PART FIBULA W/TIBIA 29176 [facility] 12-09-2011 [facility] INT ORTHOPEDIC DEVC IMPL&GFT 64527 INF&INFLAM 12-09-2011 [place] [facility] [place] [facility] DUE INTRL FOUNDATIO JOINT PROSTHESIS V5409 OT 12-09-2011 [place] [facility] SERV INVOLVING FOUNDATIO INTERNAL FIXATION DEVICE V5416 AFTERCARE 12-09-2011 [facility] TRAUMATIC FOUNDATIO FRACTURE LOWER LEG 35975 OTHER 12-02-2011 [facility] CHRONIC EMERGENCY PAIN SERVICES V1551 PERSONAL 12-02-2011 [facility] HISTORY OF EMERGENCY TRAUMATIC SERVICES FRACTURE 8920 OPEN WOUND 10-22-2011 [facility] FT NO TOE EMERGENCY ALONE SERVICES WITHOUT MENTION COMP E8490 PLACE OF 10-22-2011 [facility] OCCURRENCE, COMMUNITY HOME HOSPITA E9208 ACC CAUSED 10-22-2011 [facility] CUT&PIERCIN SERVICES G INSTRUM/OBJ S 30840 CLOSED 09-13-2011 [facility] [place] FRACTURE OF ORTHOPAEDIC SHAFT OF S PLC TIBIA 86517 AC VERNA 08-11-2011 [facility] THROMB HOSPITA UNSPEC DEEP VES LOWER EXT V5861 LONG-TERM 08-11-2011 [facility] (CURRENT) [facility] USE OF HOSPITA ANTICOAGULA NTS V571 OTHER 07-05-2011 [facility] PHYSICAL COMMUNITY THERAPY HOSPITA V4589 OTHER 07-01-2011 [facility] POSTSURGICA COMMUNITY L STATUS HOSPITA OTHER 8248 [...] Procedure [place] [address] [facility] ABDOMEN & MEDICAL PELVIS IMAGING W/O ASS CONTRAST MATERIAL COLLECTIO 61547 ANY AG[facility]WAL N VENOUS 6 [facility] BLOOD INC INC VENIPUNCT URE COMPREHEN 60893 ANY [facility] SIVE 6 [facility] METABOLIC INC INC PANEL LIPID 08135 ANY [facility] PANEL 6 [facility] INC INC BLOOD 00890 ANY AGARWAL COUNT 6 [facility] COMPLETE INC INC AUTO&AUTO DIFRNTL WBC SUSCEPTIB 37462 ANY [facility] LTY STDY 5 MEM [facility] ANTIMICRB INC INC IAL MICRO/AGA R DILUTJ URNLS DIP 45822 ANY AGARWAL 5 [facility] STICK/TAB INC INC LET REAGENT AUTO MICROSCOP Y CULTURE 04495 ANY [facility]WAL BACTERIAL 5 [facility] INC INC QUANTTATI VE COLONY COUNT URINE CULTURE 95970 ANY [facility] BCT 5 [facility] ISOL&PRSM INC INC PTV ID ISOLATE EA URINE INJECTION J0696 ANY NIRANJAN 5 [facility] NE SODIUM PER 250 MG INJECTION J1040 ANY NIRANJAN 5 [facility] DNISOLONE ACETATE 80 MG THERAPEUT 97491 ANY NIRANJAN IC 5 [facility] TIC/DX INJECTION SUBQ/IM COMPUTER- 11957 ANY AGARWAL AIDED 5 [facility] DETECTION INC INC SCREENING MAMMOGRAP HY SCREENING G0202 ANY AGARWAL 5 [facility]OS[facility] MAMMOGRAP INC INC HY NICOLÁS INCL CAD WHEN PERFORMD COLLECTIO 37038 ANY Mendoza VENOUS 5 MEM HOS[facility]OS[facility] BLOOD INC INC VENIPUNCT URE CYANOCOBA 06712 ANY AGARWAL SHANIQUA 5 [facility] VITAMIN INC INC B-12 LIPID 24246 ANY AGARWAL PANEL 5 [facility]OS[facility] INC INC BLOOD 19928 ANY AGARWAL COUNT 5 MEM [facility]OS[facility] COMPLETE INC INC AUTO&[place] [address] ANY AGARWAL THYROID 5 MEM H[facility]OS[facility] STIMULATI INC INC NG HORMONE TSH COMPREHEN 94221 ANY AGARWAL SIVE 5 [facility]OS[facility] METABOLIC INC INC PANEL COMPREHEN 13718 [facility] 5 Y Y [facility] PANEL BLOOD 33584 [facility] 5 Y Y [facility] AUTOMATED COLLECTIO 36379 [facility] VENOUS 5 Y Y BLOOD [facility] VENIPUNCT URE COLLECTIO 37886 ANY AGARWAL N VENOUS 5 [facility] [place] [address] ANY AGARWAL THYROID 5 MEM HOS[facility] MEM HOS[facility] STIMULATI INC INC NG HORMONE TSH BLOOD 98210 ANY AGARWAL COUNT 5 MEM HOS[facility]OS[facility] COMPLETE INC INC AUTO&AUTO DIFRNTL WBC HEPATIC 11713 ANY AGARWAL FUNCTION 5 MEM HOS[facility] HOSP PANEL INC INC VSTBLR 51847 [facility] BENAVIDES MAT FUNCJ 4 MEDICAL NYSTAG SERV FOVL&PERP FOUNDATIO H STIMJ N OSCIL TRK CALORIC 41843 [facility] BENAVIDES MAT VESTIBULA 4 MEDICAL R TEST EA SERV FOUNDATIO IRRIGATIO N N W/RECORD SUSCEPTIB 74625 ANY AGARWAL LTY STDY 4 MEM HOSP MEM HOSP ANTIMICRB INC INC IAL MICRO/AGA R DILUTJ URNLS DIP 15888 ANY AGARWAL 4 [facility]OS[facility] STICK/TAB INC INC LET REAGENT AUTO MICROSCOP Y CULTURE 81087 ANY AG[facility]WAL BCT 4 MEM HOS[facility]OS[facility] ISOL&PRSM INC INC PTV ID ISOLATE EA URINE CULTURE 51029 ANY AGARWAL BACTERIAL 4 MEM HOS[facility] HOS[facility] INC INC QUANTTATI VE COLONY COUNT URINE URINE 94282 ANY AGARWAL 4 [facility] HOS[facility] TEST INC INC VISUAL COLOR CMPRSN METHS INJECTION J1040 FIL[facility] PENN 4 CORNELIA CORNELIA METHYLPRE DNISOLONE ACETATE 80 MG THERAPEUT 70405 [facility]ENN IC 4 CORNELIA CORNELIA PROPHYLAC TIC/DX INJECTION SUBQ/IM MRI BRAIN 39229 [facility] BRAIN 4 Y Y STEM W/O HOSPITAL HOSPITAL W/CONTRAS T MATERIAL INJECTION A9579 [facility] 4 Y Y [facility] M BASED MR CONTRAST NOS ML INJECTION J2765 [facility] 4 Y Y METOCLOPR [facility] AMIDE HCL UP TO 10 MG COMPREHEN 75808 [facility] SIVE 4 Y Y METABOLIC [facility] PANEL INFUSION J7050 [facility] NORMAL 4 Y Y SALINE [facility] SOLUTION 250 CC INJECTION J1885 [facility] 4 Y Y KETOROLAC [facility] TROMETHAM INE PER 15 MG INJ J2930 [facility] METHYLPRD 4 Y Y NISOLONE [facility] SODIUM SUCCNAT TO 125 MG BLOOD 18918 [facility] COUNT [address] [facility] H[facility] AUTOMATED ECG 48854 [facility] ROUTINE 4 Y Y ECG [facility] W/LEAST 12 LDS TRCG ONLY W/O I&R ECG 98679 MIKE BERRY ROUTINE 4 MEDICAL NAN ECG SERV W/LEAST FOUNDATIO 12 LDS N I&[place] [address] [facility] 4 Y Y [facility] INJECTION J1100 [facility] 4 PHYSICIAN PHYSICIAN DEXAMETHO S GROUP S GROUP SONE SODIUM PHOSPHATE 1 MG THERAPEUT 40326 [facility] IC 4 PHYSICIAN PHYSICIAN PROPHYLAC S GROUP S GROUP TIC/DX INJECTION SUBQ/IM INJECTION J1040 [facility] 4 PHYSICIAN PHYSICIAN METHYLPRE S GROUP S GROUP DNISOLONE ACETATE 80 MG MRI BRAIN 58532 SHELIA KWA SHELIA KWA BRAIN 4 STEM W/O W/CONTRAS T MATERIAL SBSQ 07154 [facility] 3 DYLON DYLON CARE/DAY 25 MINUTES MRI BRAIN 40365 K[facility] MACEDO BRAIN 3 STEM W/O W/CONTRAS T MATERIAL MRI 37996 KATYA MACEDO SPINAL 3 CANAL THORACIC W/O & W/CONTR MATRL INITIAL 71706 [facility] 3 DYLON DYLON CARE/DAY 70 MINUTES MRI 13750 KATYA MACEDO SPINAL 3 CANAL CERVICAL W/O & W/CONTR MATRL RADIOLOGI 81310 [facility] C 3 [place] [facility] EXAMINATI ORTHOPAED ON TIBIA ICS PLC & FIBULA 2 VIEWS BLOOD 82035 [facility] COUNT 3 N N COMPLETE [facility] AUTOMATED HOSPITA HOSPITA BLOOD 96823 [facility] COUNT 3 N N SMEAR [facility] MCRSCP HOSPITA HOSPITA W/MNL DIFRNTL WBC COUNT BASIC 13228 [facility] METABOLIC 3 N N PANEL [facility] CALCIUM HOSPITA HOSPITA TOTAL COLLECTIO 20553 [facility] N VENOUS 3 N N BLOOD [facility] VENIPUNCT HOSPITA HOSPITA URE HETEROPHI 22727 [facility] LE 3 AMERIC AMERIC ANTIBODIE HOLDING HOLDING S SCREEN GENERAL 16482 [facility] 3 AMERIC AMERIC PANEL HOLDING HOLDING ANTIBODY 58341 [facility] CYTOMEGAL 3 AMERIC AMERIC OVIRUS HOLDING HOLDING CMV IGM ANTIBODY 08034 [facility] CYTOMEGAL 3 AMERIC AMERIC OVIRUS HOLDING HOLDING CMV IAADIADOO 80146 [facility] 3 [facility] LABS, [place] [address] [facility] CELLAROSI PHLX/PHLG 2 EMERGENCY - YORBA OTH/THN SERVICES PAT GRT TOE W/O MANJ RADEX 62601 [facility] FOOT 2 N N [facility] MINIMUM 3 HOSPITA HOSPITA VIEWS INJECTION A9579 [facility] 2 Y Y [facility] M BASED MR CONTRAST NOS ML MRI BRAIN 23049 [facility] BRAIN 2 Y Y STEM W/O [facility] W/CONTRAS T MATERIAL INFUSION J7030 [facility] NORMAL 2 Y Y [facility] SOLUTION 1000 CC RADEX 22195 [facility] [place] ANKLE 2 [place] [facility] COMPLETE ORTHOPAED MINIMUM 3 ICS PLC VIEWS DUP-SCAN 70801 [facility] XTR VEINS 2 N N [facility] UNILATERA HOSPITA HOSPITA L/LIMITED STUDY RADEX 80861 [facility] [place] ANKLE 2 [place] [facility] COMPLETE ORTHOPAED MINIMUM 3 ICS PLC VIEWS INJECTION J3010 [facility] FENTANYL 2 N N CITRATE [facility] 0.1 MG HOSPITA HOSPITA INJECTION J2250 [facility] 2 N N MIDAZOLAM [facility] HCL PER HOSPITA HOSPITA 1 MG REMOVAL 27614 [facility] IMPLANT 2 [place] AB[facility] DEEP ORTHOPAED ICS PLC RADIOLOGI 05174 [facility] C 2 N N EXAMINATI [facility] ON ANKLE HOSPITA HOSPITA 2 VIEWS ANES OPEN 20880 [facility] PROC 2 ANESTHESI BEATRIZ BONES A GROUP LOWER PS LEG/ANKLE /FOOT NOS FLUOROSCO 24018 [facility] PY SPX UP 2 N N TO 1 [facility] HOUR HOSPITA HOSPITA PHYS/QHP TIME COLLECTIO 33781 [facility] N VENOUS 2 N N BLOOD [facility] VENIPUNCT HOSPITA HOSPITA URE BLOOD 62486 [facility] COUNT 2 N N [facility] AUTO&AUTO HOSPITA HOSPITA DIFRNTL WBC GONADOTRO 34658 [facility] PIN 2 N N [facility] HOSPITA HOSPITA QUALITATI VE BASIC 37599 [facility] METABOLIC 2 N N PANEL [facility] CALCIUM HOSPITA HOSPITA TOTAL RADEX 59038 [facility] ANKLE 2 Y Y COMPLETE HOSPITAL HOSPITAL MINIMUM 3 VIEWS RADIOLOGI 46522 [facility] C [address] [facility] HOSPITAL ON TIBIA & FIBULA 2 VIEWS RADIOLOGI 81938 [facility] [place] [facility]RIAN MAT C 2 RADIOLOGY EXAMINATI ON TIBIA & FIBULA 2 VIEWS RADEX 06187 [facility] [place] [facility]AN MAT CALCANEUS 2 RADIOLOGY MINIMUM 2 VIEWS RADEX 38634 [facility] [place] ANKLE 2 [place] [facility] COMPLETE ORTHOPAED MINIMUM 3 ICS PLC VIEWS RADEX 82545 [facility] [place] SCALF ALEXEY FOOT 2 RADIOLOGY COMPLETE MINIMUM 3 VIEWS IM ADM 52256 [facility] PRQ ID 2 N N SUBQ/IM [facility] NJXS 1 HOSPITA HOSPITA VACCINE DUP-SCAN 16315 [facility] XTR VEINS 2 N N [facility] UNILATERA HOSPITA HOSPITA L/LIMITED STUDY RADIOLOGI 45138 [facility] [place] C 2 [place] [facility] EXAMINATI ORTHOPAED ON TIBIA [facility] & FIBULA 2 VIEWS DUP-SCAN 40616 [facility] XTR VEINS 2 N N [facility] UN[facility]ATERA HOSPITA HOSPITA L/LIMITED STUDY RADIOLOGI 64443 [facility] [place] C 2 [place] EXAMINATI ORTHOPAED ON TIBIA [facility] & FIBULA 2 VIEWS ANK FT L1906 [facility] ORTHOS 2 [facility] MX-LIG ORTHOPAED ORTHOPAED ANK SUPT IC IC PREFB OFF SHELF PROTHROMB 99829 [facility] IN TIME 2 N N [facility] HOSPITA HOSPITA WALKING L4360 [facility] BOOT 2 [facility] PNEUMATC ORTHOPAED ORTHOPAED &/ VACUUM IC IC PREFAB CUSTM FIT RADIOLOGI 95680 [facility] [place] C 2 [place] EXAMINATI ORTHOPAED ON TIBIA [facility] & FIBULA 2 VIEWS PROTHROMB 15607 [facility] IN TIME 2 N N [facility] HOSPITA HOSPITA PHYSICAL 36160 [facility] THERAPY 2 N N EVALUATIO [facility] N HOSPITA HOSPITA THERAPEUT 57881 [facility] IC PX 1/> 2 N N AREAS [facility] EACH 15 HOSPITA HOSPITA MIN EXERCISES DUP-SCAN 91647 [facility] XTR VEINS 2 N N [facility] HOSPITA L/LIMITED STUDY PROTHROMB 40733 [facility] IN TIME 2 N N [facility] HOSPITA HOSPITA ANKLE L4350 [facility] CONTROL 2 [facility] ORTHOSIS ORTHOPAED ORTHOPAED STIRRUP IC IC STYL RIGID PREFAB RADIOLOGI 79479 [facility] [place] 2 ABEL ABEL EXAMINATI ON TIBIA & FIBULA 2 VIEWS PROTHROMB 33958 [facility] IN TIME 1 N N [facility] HOSPITA HOSPITA PROTHROMB 94894 [facility] IN TIME 1 N N [facility] HOSPITA HOSPITA PROTHROMB 06909 [facility] IN TIME 1 N N [facility] HOSPITA HOSPITA RADIOLOGI 59822 [facility] [place] 1 ABEL ABEL EXAMINATI ON TIBIA & FIBULA 2 VIEWS PROTHROMB 69875 [facility] IN TIME 1 N N [facility] HOSPITA HOSPITA DUP-SCAN 86282 [facility] XTR VEINS 1 N N [facility] HOSPITA L/LIMITED STUDY RADIOLOGI 92685 [facility] [place] 1 ABEL ABEL EXAMINATI ON TIBIA & F[place] 2 [place] [address] [facility] 1/> AREAS 1 N N EA 15 [facility] MIN GAIT HOSPITA HOSPITA TRAINJ W/STAIR INJECTION [id number] [facility] MORPHINE 1 N N [facility] PER 10 MG HOSPITA HOSPITA PHYSICAL 25672 [facility] THERAPY 1 N N EVALUATIO [facility] N HOSPITA HOSPITA REMOVAL 12205 MENDOZA DONALDSON IMPLANT 1 ABEL ROMAN DEEP BONE 7807 [facility] GRAFT OF 1 N N [place] AND [facility] FIBULA HOSPITA HOSPITA OPEN 7936 [facility] REDUCTION 1 N N FRACTURE COMMUNITY [facility] HOSPITA HOSPITA TIBIA&FIB W/INTERNA L FIX INJECTION [id number] [facility] MORPHINE 1 N N [facility] PER 10 MG HOSPITA HOSPITA RADIOLOGI 97131 [facility] MIKE STUART C 1 RADIOLOGY RHO EXAMINATI ON ANKLE 2 VIEWS HOSPITAL [id number] [facility] OBSERVATI 1 N N ON [facility] SERVICE HOSPITA HOSPITA PER HOUR ANES OPEN 66210 MIKE CROOK PROC 1 ANESTHESI I JR EDW BONES A GROUP LOWER PSC LEG/ANKLE /FOOT NOS FLUOROSCO 52459 [facility] PY SPX >1 1 N N [facility] PHYS/QHP HOSPITA HOSPITA TIME RADIOLOGI 71273 [facility] MIKE STUART C 1 RADIOLOGY RHO EXAMINATI ON TIBIA & FIBULA 2 VIEWS REPAIR 04494 [facility] NONUNION/ 1 N N MALUNION [facility] TIBIA W/O HOSPITA HOSPITA GRAFT OPTX 67195 MENDOZA MENDOZA TIBIAL 1 ABEL ABEL SHFT FX W/PLATE/S CREWS W/WO CERCLAGE INJECTION J2250 [facility] 1 N N [facility] HCL PER HOSPITA HOSPITA 1 MG BLOOD 85646 [facility] COUNT 1 N N HEMOGLOBI COMMUNITY COMM[facility]ITY N HOSPITA HOSPITA BLOOD 06094 [facility] COUNT 1 N N HEMATOCRI COMMUNITY [facility] T HOSPITA HOSPITA INJECTION [id number] [facility] FENTANYL 1 N N CITRATE [facility] 0.1 MG HOSPITA HOSPITA UNLISTED 08065 [facility] PROCEDURE 1 N N COMMUNITY [facility]ITY LEG/ANKLE HOSPITA HOSPITA Encounters Encounter Start End Date Code Location Performer Type Date EMERGENCY 26960 NINO [facility] DEPT 7 7 [facility]YSICIAN [facility]IS[facility] HIGH SEVERITY& THREAT FUNC OFFICE 18923 MIKE [facility]ER[facility] OUTPATIEN 6 6 MEDICAL T VISIT SERV 40 FOUNDATIO MINUTES N HOSPITAL ANY - 6 6 [facility] OUTPATIEN INC T EMERGENCY 62231 NINO AVERY 6 6 PHYSICIAN [facility] T VISIT MODERATE SEVERITY EMERGENCY 09441 ANY 6 6 [facility] DEPARTMEN INC T [facility]ISIT LIMITED/M [facility] ANY - 6 6 [facility] OUTPATIEN INC T OFFICE 68199 [facility] 6 [facility] T VISIT INTERNAL 25 MED MINUTES EMERGENCY 85169 ANY 5 5 [facility] DEPART[facility] T VISIT LOW/MODER SEVERITY EMERGENCY 15572 NINO PENN [address] [facility] S, [facility] T VISIT HIGH/URGE NT SEVERITY HOSPITAL ANY - 5 5 [facility] OUTPATIEN INC T OFFICE 48708 ANY OMALLEY 5 5 [facility] T VISIT HOSPITAL 15 MINUTES EMERGENCY 72136 NINO CANALES 5 5 PHYSICIAN [facility] S, [facility] T VISIT MODERATE SEVERITY HOSPITAL ANY - 5 5 [facility] OUTPATIEN INC T EMERGENCY 28032 ANY 5 5 [facility] DEPARTMEN INC T VISIT LOW/MODER SEVERITY HOSPITAL ANY - 5 5 [facility] OUT[facility] INC T HOSPITAL ANY [facility] 5 5 [facility] OUTPATIEN INC T OFFICE 84562 [facility] OUTPATIEN 5 5 Y T VISIT 5 HOSPITAL MINUTES OFFICE 36718 MIKE MOUNA OUTROBERTS CHAPELEN 5 5 MEDICAL JACEY T VISIT SERV 25 FOUNDATIO MINUTES HOSPITAL UNIVERSIT - 5 5 Y [facility] ANY - 5 5 [facility] 80194 [facility] 4 4 ZACHARY DEPARTMEN EMERGENCY T VISIT PHYS HIGH/URGE NT SEVERITY EMERGENCY 24317 ANY 4 4 [facility] DEPARTMEN INC T VISIT LOW/MODER SEVERITY HOSPITAL ANY - 4 4 [facility] 67133 MIKE BENAVIDES MAT CONSULTAT 4 4 MEDICAL ION SERV NEW/ESTAB FOUNDATIO PATIENT 40 MIN OFFICE 46344 [facility] 4 CORNELIA CORNELIA T VISIT 15 [facility] - 4 4 Y [facility] T EMERGENCY 73956 MIKE VILLANUEVA 4 4 MEDICAL WAL DEPARTMEN SERV T VISIT FOUNDATIO HIGH/URGE N NT SEVERITY HOSPITAL UNIVERSIT - 4 4 Y [facility] T OFFICE 88599 NIMESH BEAVERS [facility] 4 4 DYLON DYLON T VISIT 25 MINUTES OFFICE 95412 [facility] 4 4 PHYSICIAN T VISIT S GROUP 15 MINUTES HOSPITAL UNIVERSIT [facility] 4 4 Y [facility] T OFFICE 35022 [facility] 4 4 PHYSICIAN T NEW 20 S GROUP MINUTES OFFICE 63507 [facility] T [facility]IS[facility] 5 [facility] 3 Y [facility] T OFFICE 30872 CARLOS ALBERTO [facility] 3 3 ANUM ROWAN T VISIT 25 MINUTES OFFICE 82861 ANTONIO ALVAREZ CHA OUTPATIEN 3 3 T VISIT 15 MINUTES OFFICE 66585 [facility] OUT[facility] 3 3 [place] AB[place] T VISIT ORTHOPAED 25 ICS [facility] MINUTES [facility] 3 [facility] HOS[facility] OFF[facility] 48381 MALGORZ[facility] VERONIKA OUTPATIEN 3 3 HEALTHCAR GIN T VISIT E CENTER 15 MINUTES EMERGENCY 87986 ANUEL HOUSTON 3 3 EMERGENCY [employer]ON[employer] DEPARTMEN SERVICES T VISIT HIGH/URGE NT SEVERITY OFFICE 36025 MALGORZATA ANGELITA OUTPATIEN 3 3 [facility] [place] T VISIT E CENTER 15 MINUTES EMERGENCY 61263 [facility] 3 3 N DEPARTMEN COMMUNITY T VISIT HOSPITA LOW/MODER SEVERITY EMERGENCY 02846 ANUEL CROWELLAROSI 3 3 EMERGENCY - YORBA DEPARTMEN SERVICES PAT T VISIT MODERATE SEVERITY [facility] [place] 12992 3 [facility] 50355 MIKE MARTELL PRIYA OUTPATIEN 3 3 MEDICAL T VISIT SERV 15 FOUNDATIO MINUTES [facility] 2 [facility] HOSP[facility] EMERGENCY 21051 ANUEL CROWELLAROSI 2 2 EMERGENCY - YORBA DEPARTMEN SERVICES PAT T VISIT HIGH/URGE NT SEVERITY EMERGENCY 17704 [facility] 2 2 N DEPARTMEN COMMUNITY T VISIT HOSPITA MODERATE SEVERITY HOSPITAL UNIVERSIT - 2 2 Y [facility] T OFFICE 53806 MIKE DELACRUZ OUTROBERTS CHAPELEN 2 2 MEDICAL T VISIT SERV 25 FOUNDATIO MINUTES EMERGENCY 93917 MIKE RICHARDSON 2 2 MEDICAL JULIANN DEPARTMEN SERV T VISIT FOUNDATIO MODERATE SEVERITY HOSPITAL UNIVERSIT - 2 2 Y [facility] T EMERGENCY 22680 UNIVERSIT 2 2 Y [facility] T VISIT LOW[facility]MODER SEVERITY [facility]PITAL [facility] 2 2 N [facility] HOSPITA OFFICE 26304 [place] MOGHADAM[place] OUTPATIEN 2 2 MEDICAL AN OLIMPIA T NEW 30 SERV MINUTES [facility] UNIVERSIT - 2 2 Y [facility] T OFFICE 69751 [facility]PATI[facility] 2 2 [place] T [facility]ISIT ORTHOPAED 15 [facility] - 2 2 N [facility] 47353 ANUEL PRIETO 2 2 EMERGENCY GAR [facility] T VISIT [facility]IGH/URGE NT SEVERITY EMERGENCY 70708 [facility] 2 2 N [facility] T [facility] SEVER[facility] OFFICE 34111 [facility] [place]PATIEN 2 2 [place] T VISIT ORTHOPAED 25 [facility] 2 [facility] 10968 [facility] 2 2 N [facility] T [facility] 2 [facility] 62813 [facility] [place]PATI[facility] 2 2 [place] T VISIT ORTHOPAED 15 [facility] 2 [facility] 89080 [facility] [place]PAT[facility] 2 2 [place] T [facility]ISIT ORTHOPAED 15 [facility] 2 [facility] 92431 [facility] OUTPATIEN 2 2 [place] T [facility]ISIT ORTHOPAED 15 [facility] - 2 2 N [facility] 2 N [facility] 2 N [facility]PATIEN [facility] 2 N OUTPATIEN [facility] OFF[facility] 10063 [facility] 2 2 N T VISIT 5 [facility] H[facility] OFF[facility] 22648 [facility] 1 1 N T VISIT 5 [facility] HOS[facility] OFF[facility] 47679 [facility] 1 1 N T VISIT 5 [facility] HOS[facility] OFF[facility] 25249 [facility] 1 [address] [facility] 1 1 N T VISIT 5 [facility] 1 N [facility] - 1 1 N OUTPATIEN [facility] 1 1 N INPATIENT [facility] HOSPITA
--- OUTSIDE RECORDS SUMMARY | 2016-12-29 21:08 | External Medical Summary Rpt ---
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 [facility] MINUTES [facility]OSPITAL [facility] 2 2 [facility] 55687 [facility] [place] 2 2 [place] T VISIT ORTHOPAED 15 [facility] MINUTES [facility]OSPITAL [facility] - 2 2 N OUTPATIEN [facility] HOSPITA OFFICE 97596 [facility] OUTPATIEN 2 2 [place] ABEL T VISIT ORTHOPAED 15 ICS [facility] - [address] [facility] - [address] [facility] [address] [facility] - 2 2 N OUTPATIEN [facility] HOS[facility] OFFICE 58998 [facility] 2 2 N T VISIT 5 [facility] HOSPITA OFFICE 84306 [facility] 1 1 N T VISIT 5 [facility] - 1 1 N OUTPATIEN [facility] OFFICE 60716 [facility] 1 1 N T VISIT 5 [facility] HOSPITA OFFICE 78159 [facility] OUTPATIEN 1 1 N T VISIT 5 [facility] HOSPITA OFFICE 29486 [facility] OUTPATIEN 1 1 N T [facility]ISIT 5 [facility] - [address] [facility] [address] [facility] - 1 1 N INPATIENT [facility]
--- OUTSIDE RECORDS SUMMARY | 2016-12-29 21:08 | External Medical Summary Rpt ---
Author Author , GEOFF Organization [employer] Address Unknown Phone [email or web address] Management Care Team Providers Care Sustainability Manager Name Role Phone VouchedFor, Unavailable Unavailable [employer], [employer], Unavailable Unavailable [employer], [employer] BEINEKE, BEINEKE Unavailable Unavailable CARCAMO ANUM, CARCAMO Unavailable Unavailable ANUM BENAVIDES MAT, BENAVIDES MAT Unavailable Unavailable CELLAROSI - YORBA Unavailable Unavailable PAT, CELLAROSI - YORBA PAT [facility] Unavailable Unavailable ORTHOPAEDIC, [facility] Unavailable Unavailable [facility], [facility] CHALKLEY, CHALKLEY Unavailable Unavailable [facility], Unavailable Unavailable [facility] REINA WINSOME, Unavailable Unavailable REINA WINSOME VERONIKA GIN, VERONIKA Unavailable Unavailable GIN NIRANJAN CORNELIA, NIRANJAN Unavailable Unavailable CORNELIA MAKAYLA KAYLIN, Unavailable Unavailable MAKAYLA KAYLIN BERRY NAN, BERRY Unavailable Unavailable NAN FILI CORNELIA, FILI Unavailable Unavailable CORNELIA FILI CORNELIA, FILI Unavailable Unavailable CORNELIA [facility] Unavailable Unavailable HOSPITA, [facility] PRIETO GAR, PRIETO Unavailable Unavailable GAR [facility] Unavailable Unavailable INC, [facility] Unavailable Unavailable HOSPITAL, [facility] NIMESH DYLON, NIMESH Unavailable Unavailable DYLON [facility], Unavailable Unavailable [facility] Unavailable Unavailable CENTER, [facility] MEGAN SAC, MEGAN SAC Unavailable Unavailable [facility] Un[facility] Unavailable GROUP PS, [facility] Unavailable Unavailable [facility], [facility] KATYA REMINGTON, KATYA REMINGTON [...] HOLDING JAYSHREE PRIYA, JAYSHREE PRIYA Unavailable [facility]available [facility] Un[facility] Unavailable [facility], [facility] LUBBERS WAL, LUBBERS Unavailable Unavailable WAL LUKINS WINSOME, LUKINS Unavailable Unavailable WINSOME [facility] Unavailable Unavailable SERVICES, [facility] MOGHADAMIAN OLIMPIA, Unavailable Unavailable [facility] MOUNA JACEY, MOUNA Unavailable Unavailable JACEY [facility], Unavailable Unavailable [facility], [facility] RECHTIN OCULAR CARE TECHNICIAN, RECHTIN Unavailable Unavailable OCULAR CARE TECHNICIAN RENUSCH, RENUSCH Unavailable Unavailable VICTOR BEATRIZ, VICTOR Unavailable Unavailable BEATRIZ ALVAREZ NATHAN, ALVAREZ NATHAN Unavailable Unavailable [facility], [facility] DAVIS YUSUF, Unavailable Unavailable DAVIS YUSUF ANGELITA OLIMPIA, ANGELITA Unavailable Unavailable [facility], Unavailable Unavailable [facility] WALKER FOR, WALKER Unavailable Unavailable FOR [facility] SHA, [facility] Unavailable Unavailable MENDOZA ABEL, MENDOZA Unavailable Unavailable ABEL YOUNG JR HUMPHREYS, YOUNG Unavailable Unavailable JR JULIANN SMALL JR EDW, Unavailable Unavailable GEOVANNY MACKAY EDW Purpose Continuity of Care Document - 04-06-2011 through 2016 Problems Code Diagnosis DOS Provider Status R1030 LOWER 08-14-2016 [facility] UNSPECIFIED R109 UNSPECIFIED 08-14-2016 [facility] R110 NAUSEA 08-14-2016 [facility] G35 MULTIPLE 05-10-2016 [facility] J0190 ACUTE 04-06-2016 [facility] SINUSITIS [facility], UNSPECIFIED PLLC J069 ACUTE UPPER 04-06-2016 [facility] RESPIRATORY [facility] INFECTION UNSPECIFIED M791 MYALGIA 04-06-2016 [facility] INC E785 HYPERLIPIDE 10-31-2015 [facility] HOSP UNSPECIFIED INC U48894 PAIN IN 10-21-2015 [place] UNSPECIFIED [place] ANKLE INTERNAL MED Z1231 ENCOUNTER 10-21-2015 [facility] SCREENING [place] MAMMO MALIG INTERNAL NEOPLASM MED BREAST Z6841 BODY MASS 10-21-2015 [facility] INDEX BMI VALLEY 40.0-44.9 INTERNAL ADULT MED N3000 ACUTE 05-13-2015 [facility] CYSTITIS [facility], WITHOUT PLLC HEMATURIA N390 URINARY 05-13-2015 [facility] TRACT [facility], INFECTION PLLC SITE NOT SPECIFIED D61381 ACUTE 04-04-2015 [facility] W/O HOSPITAL RUPT EAR DRUM UNS EAR R05 COUGH 04-04-2015 [facility] J0100 ACUTE 03-20-2015 [facility] MAXILLARY [facility]YS[facility], SINUSITIS PLLC UNSPECIFIED K029 DENTAL 03-20-2015 [facility] UNSPECIFIED INC 340 MULTIPLE 09-10-2014 [facility] 51316 NEUROGENIC 09-10-2014 [facility] SERV NOS [facility]OUNDATION 3862 VERTIGO OF 04-16-2014 [facility]AL SERV ORIGIN [facility] 79846 LOSS OF 04-16-2014 [place] [facility] LABYR[facility] SERV E [facility] REACTIVITY UNILATERAL 85485 UNSPECIFIED 04-16-2014 [facility] TINNITUS SERV [facility] 5990 URINARY 03-06-2014 [facility] INFECTION PHYS SITE NOT SPECIFIED 7881 DYSURIA 03-06-2014 [facility] PH[facility] 7804 DIZZINESS 02-22-2014 [facility] GIDDINESS FOUNDATIO 4610 ACUTE 02-06-2014 FILI CORNELIA MAXILLARY SINUSITIS 06512 OTHER 01-09-2014 LUK[facility] WINSOME CONDITIONS OF BRAIN 77450 UNSPECIFIED 12-10-2013 [facility] PERIPHERAL SERV VERTIGO [facility]OUND[facility] 18068 MUSCLE 12-10-2013 [facility] WE[facility]NESS SERV (GENERALIZE FOUNDATION D) 7802 SYNCOPE AND 12-10-2013 [facility] COLLAPSE [facility] 7840 HEADACHE 12-10-2013 [place] [facility] 6926 CONTACT 2013 [facility] DERMATITIS& PHYSICIANS OTHER GROUP ECZEMA DUE TO PLANTS 35721 OTH NONSPC 12-22-2012 KATYA MACEDO ABN FINDNG RAD&OTH EXM BODY STRUCTURE 73385 PAIN IN 10-16-2012 [facility] [place] JOINT, ORTHOPAEDIC ANKLE AND S PLC FOOT 2768 HYPOPOTASSE 09-08-2012 [facility] 39002 LEUKOCYTOPE 09-08-2012 [facility] UNSPECIFIED CENTER 69718 LEUKOCYTOSI 09-08-2012 [facility] UNSPECIFIED HOSPITA 60435 SPASM OF 09-08-2012 [facility] 87886 CRAMP OF 09-08-2012 [facility] HOSPITA 21441 NAUSEA WITH 09-03-2012 [facility] 14314 DIARRHEA 09-03-2012 [facility] 66688 ABDOMINAL 09-03-2012 [facility] PAIN, LEFT EMERGENCY UPPER SERVICES QUADRANT 4619 ACUTE 08-31-2012 [facility] SINUSITIS, HEALTHCARE UNSPECIFIED CENTER 462 ACUTE 08-31-2012 [facility] 7291 UNSPECIFIED 08-31-2012 [facility] MYALGIA [facility] MYOSITIS 80940 OTHER 08-31-2012 [facility] [employer] 97481 NAUSEA 08-31-2012 [facility] 18890 VOMITING 08-31-2012 [facility] 0340 STREPTOCOCC 08-16-2012 [facility] HOPPER SORE EMERGENCY THROAT SERVICES 33657 UNSPECIFIED 08-16-2012 [facility] 32018 OTHER 08-16-2012 [facility] DISEASES OF COMMUNITY NASAL HOSPITA CAVITY AND SINUSES 8260 CLOSED 05-24-2012 [facility] FRACTURE OF EMERGENCY ONE OR SERVICES MORE PHALANGES OF FOOT 79445 CONTUSION 05-24-2012 [facility] OF FOOT EMERGENCY SERVICES 5225 PERIAPICAL 03-16-2012 [facility] WITHOUT SINUS 5259 UNSPECIFIED 03-16-2012 [place] [facility] DISORDER [facility] TEETH&SUPPO FOUNDATIO RTING STRUCTURES 63620 OT COMPS 02-29-2012 [facility] DUE OT ORTHOPAEDIC INTRL S PLC ORTHOPED DEVICE IMPL&GFT 7295 PAIN IN 01-13-2012 [facility] SOFT COMMUNITY TISSUES OF HOSPITA LIMB V1251 PERSONAL 12-21-2011 [facility] HISTORY, COUNT INCLUDES THE [facility] VENOUS HOSPITA THROMBOSIS AND EMBOLISM V5401 ENCOUNTER 12-21-2011 [place] REM[facility]AL OF ANESTHESIA INTERNAL GROUP PS FIXATION DEVICE V7283 OTHER 12-20-2011 [facility] SPECIFIED COUNT INCLUDES THE [facility] PRE-OPERATI HOSPITA VE EXAMINATION 25959 NONUNION OF 12-09-2011 [facility] 78093 OPEN 12-09-2011 [facility] FRACTURE SERV UNSPECIFIED FOUNDATIO PART FIBULA W/TIBIA 37[facility] 12-09-2011 [facility] INT ORTHOPEDIC DEVC IMPL&GFT 21757 INF&INFLAM 12-09-2011 [facility] REACTION [facility] DUE INTRL FOUNDATIO JOINT PROSTHESIS V5409 OT 12-09-2011 [facility] SERV INVOLVING FOUNDATIO INTERNAL FIXATION DEVICE V5416 AFTERCARE 12-09-2011 [facility] TRAUMATIC FOUNDATIO FRACTURE LOWER LEG 82046 OTHER 12-02-2011 [facility] CHRONIC EMERGENCY PAIN SERVICES V1551 PERSONAL 12-02-2011 [facility] HISTORY OF EMERGENCY TRAUMATIC SERVICES FRACTURE 8920 OPEN WOUND 10-22-2011 [facility] FT NO TOE EMERGENCY ALONE SERVICES WITHOUT MENTION COMP E8490 PLACE OF 10-22-2011 [facility] OCCURRENCE, COMMUNITY HOME HOSPITA E9208 ACC CAUSED 10-22-2011 [facility] SPEC EMERGENCY CUT&PIERCIN SERVICES G INSTRUM/OBJ S 47859 CLOSED 09-13-2011 [facility] [place] FRACTURE OF ORTHOPAEDIC SHAFT OF S PLC TIBIA 07525 AC VERNA 08-11-2011 [facility]MBO & COMMUNITY THROMB HOSPITA UNSPEC DEEP VES LOWER EXT V5861 LONG-TERM 08-11-2011 [facility] (CURRENT) COMMUNITY USE OF HOSPITA ANTICOAGULA NTS V571 OTHER 07-05-2011 [facility] PHYSICAL COMMUNITY THERAPY HOSPITA V4589 OTHER 07-01-2011 [facility] POSTSURGICA COMMUNITY L STATUS HOSPITA OTHER 8248 [...] Procedure [place] [address] [facility] ABDOMEN & 7 MEDICAL PELVIS IMAGING W/O ASS CONTRAST MATERIAL BLOOD 96239 ANY AGARWAL COUNT 6 MEM [facility]OS[facility] COMPLETE INC INC AUTO&AUTO DIFRNTL WBC LIPID 94409 ANY AGARWAL PANEL 6 MEM HOSP MEM [facility]OS[facility] INC INC COMPREHEN 66000 ANY AGARWAL SIVE 6 MEM HOS[facility] MEM [facility]OS[facility] METABOLIC INC INC PANEL COLLECTIO 96690 ANY AGARWAL N VENOUS 6 MEM HOSP MEM HOSP BLOOD INC INC VENIPUNCT URE URNLS DIP 34986 ANY AGARWAL 5 MEM HOS[facility]OS[facility] STICK/TAB INC INC LET REAGENT AUTO MICROSCOP Y CULTURE 92686 ANY AGARWAL BACTERIAL 5 MEM HOSP MEM HOS[facility] INC INC QUANTTATI VE COLONY COUNT URINE CULTURE 25913 ANY AG[facility]WAL BCT 5 MEM HOSP MEM [facility]OS[facility] ISOL&PRSM INC INC PTV ID ISOLATE EA URINE SUSCEPTIB 44140 ANY AGARWAL LTY STDY 5 MEM HOSP MEM HOSP ANTIMICRB INC INC IAL MICRO/AGA R DILUTJ THERAPEUT 07859 ANY UREÑA IC 5 [facility] TIC/DX INJECTION SUBQ/IM INJECTION J0696 ANY NIRANJAN 5 [facility] NE SODIUM PER 250 MG INJECTION J1040 ANY UREÑA 5 [facility] DNISOLONE ACETATE 80 MG COMPUTER- 18976 [facility] AIDED 5 MEDICAL WINSOME DETECTION IMAGING ASS SCREENING MAMMOGRAP HY SCREENING G0202 [place] [address] MEDICAL WINSOME MAMMOGRAP IMAGING HY NICOLÁS ASS INCL CAD WHEN PERFORMD BLOOD 27733 ANY AGARWAL COUNT 5 MEM HOSP MEM HOSP COMPLETE INC INC AUTO&AUTO DIFRNTL WBC CYANOCOBA 32607 ANY AGARWAL SHANIQUA 5 MEM HOS[facility]OS[facility] VITAMIN INC INC B-12 COLLECTIO 98172 ANY AGARWAL N VENOUS 5 [facility] BLOOD INC INC VENIPUNCT URE LIPID 13238 ANY AGARWAL PANEL 5 MEM HOS[facility]OS[facility] INC INC COMPREHEN 58143 ANY AGARWAL SIVE 5 [facility] [place] [address] ANY AGARWAL THYROID 5 MEM HOSP [facility]OS[facility] STIMULATI INC INC NG HORMONE TSH COMPREHEN 80582 [facility] 5 Y Y [facility] PANEL COLLECTIO 50299 [facility] VENOUS 5 Y Y [facility] VENIPUNCT URE BLOOD 23026 [facility] 5 Y Y [facility] AUTOMATED BLOOD 41731 ANY AGARWAL COUNT 5 MEM HOSP MEM HOSP COMPLETE INC INC AUTO&AUTO DIFRNTL WBC COLLECTIO 01284 ANY AGARWAL N VENOUS 5 MEM HOSP [facility] HOSP BLOOD INC INC VENIPUNCT URE HEPATIC 63347 ANY AGARWAL FUNCTION 5 [facility] [place] [address] ANY AGARWAL THYROID 5 MEM HOSP MEM HOSP STIMULATI INC INC NG HORMONE TSH CALORIC 08086 [facility] 4 MEDICAL R TEST EA SERV FOUNDATIO IRRIGATIO N N W/RECORD VSTBLR 13147 MIKE BENAVIDES MAT FUNCJ 4 MEDICAL NYSTAG SERV FOVL&PERP FOUNDATIO H STIMJ N OSCIL TRK URNLS DIP 16244 ANY AGARWAL 4 MEM HOSP [facility] HOS[facility] STICK/TAB INC INC LET REAGENT AUTO MICROSCOP Y URINE 50982 ANY AGARWAL 4 MEM HOS[facility]OS[facility] TEST INC INC VISUAL COLOR CMPRSN METHS CULTURE 72880 ANY AGARWAL BCT 4 [facility] ISOL&PRSM INC INC PTV ID ISOLATE EA URINE CULTURE 53399 ANY AGARWAL BACTERIAL 4 MEM HOSP MEM HOS[facility] INC INC QUANTTATI VE COLONY COUNT URINE SUSCEPTIB 74251 ANY AGARWAL LTY STDY 4 [facility] ANTIMICRB INC INC IAL MICRO/AGA R DILUTJ THERAPEUT 93372 [facility]ENN IC 4 CORNELIA CORNELIA PROPHYLAC TIC/DX INJECTION SUBQ/IM INJECTION J1040 FILI PENN 4 CORNELIA CORNELIA METHYLPRE DNISOLONE ACETATE 80 MG INJECTION A9579 [facility] [address] [facility] M BASED MR CONTRAST NOS ML MRI BRAIN 16028 [facility] BRAIN 4 Y Y STEM W/O [facility] HOSPITAL W/CONTRAS T MATERIAL INJECTION J1885 [facility] 4 Y Y KETOROLAC [facility] TROMETHAM INE PER 15 MG INFUSION J7050 [facility] NORMAL 4 Y Y SALINE [facility] SOLUTION 250 CC INJ J2930 [facility] METHYLPRD 4 Y Y NISOLONE [facility] SODIUM SUCCNAT TO 125 MG INJECTION J2765 [facility] 4 Y Y METOCLOPR [facility] AMIDE HCL UP TO 10 MG COMPREHEN 26224 [facility] SIVE 4 Y Y METABOLIC [facility] PANEL ECG 88124 MIKE BERRY ROUTINE 4 MEDICAL NAN ECG SERV W/LEAST FOUNDATIO 12 LDS [place] [address] [facility] LIPASE 4 Y Y HOSPITAL HOSPITAL ECG 19101 [facility] ROUTINE 4 Y Y ECG [facility] HOSPITAL W/LEAST 12 LDS TRCG ONLY W/O I&R BLOOD 36943 [facility] COUNT 4 Y Y COMPLETE [facility] HOSPITAL AUTOMATED INJECTION J1100 [facility] 4 PHYSICIAN PHYSICIAN DEXAMETHO S GROUP S GROUP SONE SODIUM PHOSPHATE 1 MG THERAPEUT 46519 [facility] IC 4 PHYSICIAN PHYSICIAN PROPHYLAC S GROUP S GROUP TIC/DX INJECTION SUBQ/IM INJECTION J1040 [facility] 4 PHYSICIAN PHYSICIAN METHYLPRE S GROUP S GROUP DNISOLONE ACETATE 80 MG MRI BRAIN 27126 [facility] BRAIN 4 Y Y STEM W/O HOSPITAL HOSPITAL W/CONTRAS T MATERIAL SBSQ 83974 [facility] 3 DYLON DYLON CARE/DAY 25 MINUTES MRI BRAIN 03202 KATYA MACEDO BRAIN 3 STEM W/O W/CONTRAS T MATERIAL MRI 10533 KATYA MACEDO SPINAL 3 CANAL THORACIC W/O & W/CONTR MATRL INITIAL 32167 [facility] 3 DYLON DYLON CARE/DAY 70 MINUTES MRI 19293 KATYA MACEDO SPINAL 3 CANAL CERVICAL W/O & W/CONTR MATRL RADIOLOGI 63287 [facility] C 3 [place] [facility] EXAMINATI ORTHOPAED ON TIBIA [facility]CS PLC & FIBULA 2 VIEWS BLOOD [address] [facility] COUNT 3 N N COMPLETE [facility] AUTOMATED HOSPITA HOSPITA BLOOD [address] [facility] COUNT 3 N N SMEAR [facility] MCRSCP HOSPITA HOSPITA W/MNL DIFRNTL WBC COUNT BASIC [address] [facility] METABOLIC 3 N N PANEL [facility] CALCIUM HOSPITA HOSPITA TOTAL COLLECTIO [address] [facility] N VENOUS 3 N N BLOOD [facility] VENIPUNCT HOSPITA HOSPITA URE GENERAL 69362 [facility] 3 AMERIC AMERIC PANEL HOLDING HOLDING ANTIBODY 71195 [facility] CYTOMEGAL 3 AMERIC AMERIC OVIRUS HOLDING HOLDING CMV IGM ANTIBODY 65206 [facility] CYTOMEGAL 3 AMERIC AMERIC OVIRUS HOLDING HOLDING CMV IAADIADOO 09868 [facility] 3 LABS, [facility] INFLUENZA HETEROPHI 63021 [facility] LE 3 AMERIC AMERIC ANTIBODIE HOLDING HOLDING S SCREEN RADEX 45576 [facility] [place] DAVIS FOOT 2 RADIOLOGY YUSUF COMPLETE MINIMUM 3 VIE[place] FX 84331 [facility] CELLAROSI PHLX/PHLG 2 EMERGENCY - YORBA OTH/THN SERVICES PAT GRT TOE W/O MANJ INJECTION A9579 [facility] [address] [facility] M BASED MR CONTRAST NOS ML MRI BRAIN 72619 [facility] BRAIN 2 Y Y STEM W/O [facility] W/CONTRAS T MATERIAL INFUSION J7030 [facility] NORMAL 2 Y Y [facility] SOLUTION 1000 CC RADEX 46315 [facility] [place] ANKLE 2 [place] ABEL COMPLETE ORTHOPAED MINIMUM 3 ICS PLC VIEWS DUP-SCAN [address] [facility] XTR VEINS 2 N N [facility] UNILATERA HOSPITA HOSPITA L/LIMITED STUDY RADEX 37890 [facility] [place] ANKLE 2 [place] ABEL COMPLETE ORTHOPAED MINIMUM 3 ICS PLC VIEWS INJECTION J2250 [facility] 2 N N MIDAZOLAM [facility] HCL PER HOSPITA HOSPITA 1 MG ANES OPEN 97790 [place] VICTOR PROC 2 ANESTHESI BEATRIZ BONES A GROUP LOWER PS LEG/ANKLE /FOOT NOS INJECTION J3[address] [facility] FENTANYL 2 N N CITRATE [facility] 0.1 MG HOSPITA HOSPITA FLUOROSCO [address] [facility] PY SPX UP 2 N N TO 1 [facility] HOUR HOSPITA HOSPITA PHYS/QHP TIME REMOVAL [address] [facility] IMPLANT 2 N N DEEP [facility] HOSPITA HOSPITA RADIOLOGI [address] [facility] C 2 N N EXAMINATI [facility] ON ANKLE HOSPITA HOSPITA 2 VIEWS BLOOD [address] [facility] COUNT 2 N N COMPLETE [facility] AUTO&AUTO HOSPITA HOSPITA DIFRNTL WBC GONADOTRO [address] [facility] PIN 2 N N CHORIONIC [facility] HOSPITA HOSPITA QUALITATI VE BASIC [address] [facility] METABOLIC 2 N N PANEL [facility]ITY CALCIUM HOSPITA HOSPITA TOTAL COLLECTIO [address] [facility] N VENOUS 2 N N BLOOD [facility] VENIPUNCT HOSPITA HOSPITA URE RADEX 81750 [place] ANUM ANKLE 2 MEDICAL COMPLETE SERV MINIMUM 3 FOUNDATIO VIEWS RADIOLOGI 23210 [place] ANUM C 2 MEDICAL EXAMINATI SERV ON TIBIA FOUNDATIO & FIBULA 2 VIEWS RADIOLOGI [address] [facility] C 2 N N EXAMINATI [facility] ON TIBIA HOSPITA HOSPITA & FIBULA 2 VIEWS RADEX [address] [facility] CALCANEUS 2 N N MINIMUM COUNT INCLUDES THE [facility] COMMUNITY 2 VIEWS HOSPITA HOSPITA RADEX 77565 [facility] ANKLE 2 [place] [facility] COMPLETE ORTHOPAED MINIMUM 3 ICS PLC VIEWS RADEX 26278 [facility] [place] FOOT 2 EMERGENCY OCULAR CARE TECHNICIAN COMPLETE SERVICES MINIMUM 3 VIEWS IM ADM [address] [facility] PRQ ID 2 N N SUBQ/IM [facility] NJXS 1 HOSPITA HOSPITA VACCINE DUP-SCAN [address] [facility] XTR VEINS 2 N N [facility] UNILATERA HOSPITA HOSPITA L/LIMITED STUDY RADIOLOGI 45291 [facility] [place] C 2 [place] AB[place] EXAMINATI ORTHOPAED ON TIBIA [facility] & FIBULA 2 VIEWS DUP-SCAN [address] [facility] XTR VEINS 2 N N [facility] UNILATERA HOSPITA HOSPITA L/LIMITED STUDY RADIOLOGI 78002 [facility] [place] C 2 [place] EXAMINATI ORTHOPAED ON TIBIA [facility]CS PLC & FIBULA 2 VIEWS ANK FT L1906 [facility] ORTHOS 2 [facility] MX-LIG ORTHOPAED ORTHOPAED ANK SUPT IC IC PREFB OFF SHELF PROTHROMB [address] [facility] IN TIME 2 N N [facility] HOSPITA HOSPITA RADIOLOGI 86365 [facility] [place] C 2 [place] EXAMINATI ORTHOPAED ON TIBIA [facility]CS PLC & FIBULA 2 VIEWS WALKING L4360 [facility] BOOT 2 [facility] PNEUMATC ORTHOPAED ORTHOPAED &/ VACUUM IC IC PREFAB CUSTM FIT PROTHROMB [address] [facility] IN TIME 2 N N [facility] HOSPITA HOSPITA PHYSICAL [address] [facility] THERAPY 2 N N EVALUATIO [facility] N HOSPITA HOSPITA THERAPEUT [address] [facility] IC PX 1/> 2 N N AREAS [facility] EACH 15 HOSPITA HOSPITA MIN EXERCISES DUP-SCAN [address] [facility] XTR VEINS 2 N N [facility] HOSPITA L/LIMITED STUDY PROTHROMB [address] [facility] IN TIME 2 N N [facility] HOSPITA HOSPITA ANKLE [id number] [facility]OL 2 [facility] ORTHOSIS ORTHOPAED ORTHOPAED STIRRUP IC IC STYL RIGID PREFAB RADIOLOGI [id number] MEND[place] 2 ABEL ABEL EXAMINATI ON TIBIA & FIBULA 2 VIEWS PROTHROMB [address] [facility] IN TIME 1 N N [facility] H[facility] HOSPITA PROTHROMB [address] [facility] IN TIME 1 N N [facility] HOSPITA PROTHROMB [address] [facility] IN TIME 1 N N [facility] HOSPITA RADIOLOGI 42636 MENDO[place] 1 ABEL ABEL EXAMINATI ON TIBIA & FIBULA 2 VIEWS PROTHROMB [address] [facility] IN TIME 1 N N [facility] H[facility] HOSPITA DUP-SCAN [address] [facility] XTR VEINS 1 N N [facility] HOSPITA HOSPITA L/LIMITED STUDY RADIOLOGI 87356 MENDO[place] 1 ABEL ABEL EXAMINATI ON TIBIA & F[place] 2 [place] [address] [facility] 1/> AREAS 1 N N EA 15 [facility] MIN GAIT HOSPITA HOSPITA TRAINJ W/STAIR PHYSICAL [address] [facility] THERAPY 1 N N [facility] N HOSPITA HOSPITA INJECTION [id number] [facility] MORPHINE 1 N N [facility] PER 10 MG HOSPITA HOSPITA INJECTION [id number] [facility] MORPHINE 1 N N [facility] PER 10 MG HOSPITA HOSPITA RADIOLOGI [address] [facility] C 1 N N EXAMINATI COMMUNITY COMMUNITY ON TIBIA HOSPITA HOSPITA & FIBULA 2 VIEWS REMOVAL [address] [facility] IMPLANT 1 N N DEEP COUNT INCLUDES THE [facility] COMMUNITY HOSPITA HOSPITA BLOOD [address] [facility] COUNT 1 N N [facility] COMMUNITY N HOSPITA HOSPITA RADIOLOGI [address] [facility] C 1 N N EXAMINATI COMMUNITY COMMUNITY ON ANKLE HOSPITA HOSPITA 2 VIEWS BONE [address] [facility] GRAFT OF 1 N N TIBIA AND [facility] FIBULA HOSPITA HOSPITA OPEN [address] [facility] REDUCTION 1 N N FRACTURE [facility] HOSPITA HOSPITA TIBIA&FIB W/INTERNA L FIX REPAIR [address] [facility] NONUNION/ 1 N N MALUNION [facility] TIBIA W/O HOSPITA HOSPITA GRAFT OPTX 19886 MENDOZA DONALDSON TIBIAL 1 ABEL ABEL LOVELACE FX W/PLATE/S CREWS W/WO CERCLAGE UNLISTED [id number] [facility] PROCEDURE 1 N N [facility] LEG/ANKLE HOSPITA HOSPITA FLUOROSCO [address] [facility] PY SPX >1 1 N N HOUR COMMUNITY COUNT INCLUDES THE [facility] PHYS/QHP HOSPITA HOSPITA TIME HOSPITAL [id number] [facility] OBSERVATI 1 N N ON COMMUNITY COMMUNITY SERVICE HOSPITA HOSPITA PER HOUR INJECTION [id number] [facility] 1 N N [place] [facility] HCL PER HOSPITA HOSPITA 1 MG BLOOD [address] [facility] COUNT 1 N N [facility]I [facility] T HOSPITA HOSPITA INJECTION [id number] [facility] FENTANYL 1 N N [place] [facility] 0.1 MG [facility] 50466 MIKE CROOK PROC 1 ANESTHESI I JR EDW BONES A GROUP LOWER PSC LEG/ANKLE /FOOT NOS Encounters Encounter Start End Date Code Location Performer Type Date EMERGENCY [address] DEPT 7 7 PHYSICIAN VISIT S, PLLC HIGH SEVERITY& THREAT FUNJ OFFICE 35954 MIKE [facility] 6 6 MEDICAL T VISIT SERV 40 FOUNDATIO MINUTES N EMERGENCY [address] 6 6 PHYSICIAN [facility] S, [facility] T VISIT MODERATE SEVERITY HOSPITAL ANY - 6 6 [facility] EMERGENCY 36482 ANY 6 6 [facility] T VISIT LIMITED/M INOR PROB HOSPITAL ANY [facility] 6 6 [facility] OFFICE 11169 [facility] 6 6 [facility] T VISIT INTERNAL 25 MED MINUTES EMERGENCY 84891 ANY 5 5 [facility] T VISIT LOW/MODER SEVERITY HOSPITAL ANY - 5 5 [facility] EMERGENCY 84925 [address] [place] 5 5 PHYSICIAN [facility], [facility] T VISIT HIGH/URGE NT SEVERITY OFFICE 43668 [facility] [address] [facility] T VISIT HOSPITAL 15 MINUTES EMERGENCY 69775 ANY 5 5 [facility] T VISIT LOW/MODER SEVERITY EMERGENCY 90008 NINO CANALES 5 5 PHYSICIAN [facility] S, [facility] T VISIT MODERATE SEVERITY HOSPITAL ANY - 5 5 [facility] HOSPITAL ANY - 5 5 [facility] HOSPITAL ANY - 5 5 [facility] OUTPATIEN INC T OFFICE 10070 MIKE MOUNA OUTPATIEN 5 5 MEDICAL JACEY T VISIT SERV 25 FOUNDATIO MINUTES N HOSPITAL UNIVERSIT - 5 5 [facility] T OFFICE 72478 [facility] 5 5 Y T VISIT 5 [facility] ANY - 5 5 [facility] OUTPATIEN [facility] T HOSPITAL ANY - 4 4 [facility] T EMERGENCY 76255 ANY 4 4 MEM [facility] DEPARTMEN INC T VISIT LOW/MODER SEVERITY EMERGENCY 65647 [facility] 4 4 ZACHARY DEPARTMEN EMERGENCY T VISIT PHYS HIGH/URGE NT SEVERITY OFFICE 28371 MIKE BENAVIDES MAT CONSULTAT 4 4 MEDICAL ION SERV NEW/ESTAB FOUNDATIO PATIENT 40 MIN OFFICE 53826 FILI FILI OUTPATIEN 4 4 CORNELIA CORNELIA T VISIT 15 MINUTES HOSPITAL [facility] - 4 4 [facility] EM[facility]ENC[facility] 70428 MIKE VILLANUEVA 4 4 MEDICAL WAL DEPARTMEN SERV T VISIT FOUNDATIO HIGH/URGE N NT SEVERITY HOSPITAL [facility] - 4 4 [facility] T OFFICE 37023 NIMESH BEAVERS [facility] 4 4 DYLON DYLON T VISIT 25 MINUTES OFFICE 28240 [facility] 4 4 PHYSICIAN T VISIT S GROUP 15 MINUTES HOSPITAL [facility]ERSIT [facility] 4 4 [facility] T OFFICE 00941 [facility] 4 4 PHYSICIAN T NEW 20 S GROUP MINUTES OFFICE 37350 CARLOS ALBERTO CARCAMO [facility] 3 3 ANUM GARBERS T VISIT 25 MINUTES OFFICE 81642 [facility] 3 3 Y T VISIT 5 [facility] UN[facility] - 3 3 [facility] T OFFICE 35397 ANTONIO ALVAREZ [facility] OUTPATIEN 3 3 T VISIT 15 MINUTES OFFICE 71816 [facility] 3 3 [place] ABEL T VISIT ORTHOPAED 25 ICS PLC MINUTES HOSPITAL [facility] - 3 3 N [facility]OSP[facility] OFF[facility] 11815 [facility] VERONIKA [facility] 3 3 HEALTHCAR GIN T VISIT E CENTER 15 MINUTES EMERGENCY 25977 ANUEL HOUSTON 3 3 EMERGENCY OCULAR CARE TECHNICIAN DEPARTMEN SERVICES T VISIT HIGH/URGE NT SEVERITY OFFICE 35512 [facility] ANGELITA [facility] 3 3 HEALTHCAR [place] T VISIT E CENTER 15 MINUTES HOSPITAL [facility] - 3 3 N [facility] T HOSPITA EMERGENCY 91604 ANUEL ROWE 3 3 EMERGENCY - YORBA DEPARTMEN SERVICES PAT T VISIT MODERATE SEVERITY EMERGENCY 34606 [facility] 3 3 N [facility] T VISIT HOSPITA LOW/MODER SEVERITY OFFICE 40289 MIKE MARTELL [facility] 3 MEDICAL T VISIT SERV 15 FOUNDATIO MINUTES HOSPITAL [facility] - 2 2 N [facility] T HOSPITA EMERGENCY 11152 [facility] 2 2 N [facility]ITY T VISIT HOSPITA MODERATE SEVERITY EMERGENCY 99919 ANUEL CROWELLAROSI 2 2 EMERGENCY - YORBA DEPARTMEN SERVICES PAT T VISIT HIGH/URGE NT SEVERITY HOSPITAL [facility] - 2 2 [facility] T OFFICE 21192 [facility] MEDICAL T VISIT SERV 25 FOUNDATIO MINUTES EMERGENCY 67453 UN[facility]ERSIT 2 2 Y [facility] T VISIT LOW/MODER SEVERITY HOSPITAL [facility] - 2 2 [facility] T EMERGENCY 86292 [place] YOUNG JR 2 2 MEDICAL JULIANN DEPARTMEN SERV T VISIT [facility] MODERATE SEVERITY HOSPITAL [facility] - 2 2 N [facility] 2 [facility] 2 2 N [facility] 2 [facility] T OFFICE 96045 [place] MOGHADAMI [facility] 2 2 MEDICAL AN OLIMP[place] T NEW 30 SERV MINUTES FOUNDATIO OFFICE 02631 [facility] 2 2 [place] AB[place] T VISIT ORTHOPAED 15 ICS PLC MINUTES EMERGENCY 06907 [facility] 2 2 N DEPARTMEN COMMUNITY [facility] MODERATE SEVERITY EMERGENCY 24847 ANUEL PRIETO 2 2 EMERGENCY GAR DEPARTMEN SERVICES T VISIT HIGH/URGE NT SEVERITY HOSPITAL [facility] - 2 2 N [facility] HOSP[facility] OFF[facility] 66402 [facility] 2 2 [place] AB[place] T VISIT ORTHOPAED 25 [facility] MINUTES HOSPITAL [facility] - 2 2 N [facility] T HOSPITA EMERGENCY 15343 ANUEL HOUSTON 2 2 EMERGENCY OCULAR CARE TECHNICIAN DEPARTMEN SERVICES T VISIT MODERATE SEVERITY HOSPITAL [facility] - 2 2 N [facility] T HOSPITA OFFICE 77979 [facility] 2 2 [place] AB[place] T VISIT ORTHOPAED 15 [facility] PLC MINUTES HOSPITAL [facility] 2 2 N [facility] OFF[facility] 92319 [facility] 2 2 [place] AB[place] T VISIT ORTHOPAED 15 [facility] MINUTES HOSPITAL [facility] - 2 2 N OUTPATIEN [facility] HOSPITA OFFICE 43582 [facility] OUTPATIEN 2 2 [place] AB[place] T VISIT ORTHOPAED 15 ICS [facility] - 2 2 N OUTPATIEN [facility] - 2 2 N OUTPATIEN [facility] 2 2 N [facility]PATIEN [facility] - 2 2 N OUTPATIEN [facility] HOSPITA OFFICE 66610 [facility] 2 2 N T VISIT 5 [facility] HOSPITA OFFICE 75822 [facility] 1 1 N T VISIT 5 [facility] - 1 1 N OUTPATIEN [facility] HOSPITA OFFICE 75092 [facility] 1 1 N T VISIT 5 [facility] HOSPITA OFFICE 30321 [facility] 1 1 N T VISIT 5 [facility] HOSPITA OFFICE 86438 [facility] 1 1 N T VISIT 5 [facility] - 1 1 N OUTPATIEN [facility] 1 1 N [facility] - 1 1 N INPATIENT COUNT [facility]CLUDES [facility]
--- OUTSIDE RECORDS SUMMARY | 2016-12-29 21:08 | External Medical Summary Rpt ---
Demographics Preferred Language Maltese Marital Status Unknown Advent Affiliation Unknown Race Unknown Ethnic Group Unknown Author Author , CARSON TELLEZ Address Unknown Phone Immunization Unable to retrieve immunization data due to connection failure with Immunization Registry. Please try again later.
--- OUTSIDE RECORDS SUMMARY | 2016-12-29 21:08 | External Medical Summary Rpt ---
Demographics Preferred Language Spanish Marital Status Unknown Mandaen Affiliation Unknown Race Unknown Ethnic Group Unknown Author Author , CARSON TELLEZ Address Unknown Phone Immunization Unable to retrieve immunization data due to connection failure with Immunization Registry. Please try again later.
--- OUTSIDE RECORDS SUMMARY | 2016-12-29 21:08 | External Medical Summary Rpt ---
Author Author GEOFF Flores, GEOFF Flores Organization [employer] Address Unknown Phone Unavailable
--- NOTE | 2016-12-29 21:15 | Urgent Treatment Center Report ---
History of Present Issue Date/Time Seen by Provider 12/29/162113 Visit Reason Pt arrived:Walked Presenting Problem:PT STATES SHES HAD FEVER, SORE THROAT AND NAUSEA WITH H/A FOR 2 DAYS. Location if Accident: Onset of symptoms date/time:/ or onset unknown for:MEDICAL HX UNKNOWN Have you (or family members/close friends) recently traveled outside the [place]? N If Yes, where/when: Have you had exposure to infectious disease within the past month? TB? Other? Specify: c/o sore throat, subjective fever, nausea, intermittent headaches x 2 days. "I think I have strep". No known sick contacts w/ similiar symptoms. nephew w/ ear infection last week. Hasn't taken or tried anything for symptoms. Denies throat swelling or difficulty breathing. Worse at night. Source patient Exam Limitations no limitations ALLERGIES Coded Allergies: latex (I-RASH 08/14/16) Home Medications Active Scripts Ibuprofen (Ibuprofen 800MG) 800 MG PO Q8HP PRN pain #15 TAB Prov: 08/14/16 Reported Medications Gabapentin 300 MG PO TID Citalopram Hydrobromide (Citalopram HBr) 40 MG PO QHS Amantadine Hcl (Amantadine) 100 MG PO BID Loratadine (Claritin 10MG) 10 MG PO DAILY Ibuprofen (Ibuprofen 200MG) 200 MG PO Q6HP PRN PAIN Interferon Beta-1a (Avonex) 30 MCG MR WEEKLY #1 Amitriptyline Hcl (Amitriptyline) 25 MG PO QHS #30 History Medical History General CAD? No Angina: No ND: No Hypertension? No Hyperlipidemia? No CHF? No DVT? Yes PE? No COPD? No Asthma? No Anemia? Yes GERD? No Gastric ulcers? No GI Bleed? No Hernia? No Thyroid Problems? No Hypothyroidism? No CVA? No Seizures? No Diabetes? No Insulin Dependent: No Insulin Pump: No Home FSBS? No Renal Insuffiency? No UTI? Yes Stones? No BPH? No GB Disease: Yes Nephritic Syndrome? No Asplenia? No Hepatitis? No Sickle Cell Disease? No Arthritis? No Migraines? Yes Cataracts? No Glaucoma? No MRSA? No HIV? No TB? No Anxiety? Yes Depression? Yes Cancer? No More? Yes Additional hx: M.S. Immunization HX DT/Tetanus Unknown Surgical Hx Previous Surgery?Y TUBAL RT LEG BREAST REDUCTION ORAL SX G.B. Social History Smoking Hx Smoker: Never Smoker Tobacco: No Alcohol Alcohol: No Review of Systems All Other Systems Reviewed and Negative Constitutional see HPI, chills, malaise, denies weakness Eyes denies drainage ENT see HPI. denies: ear pain, nose discharge, nose congestion. Respiratory denies cough, denies shortness of breath Gastrointestinal denies abdominal pain, denies diarrhea, denies vomiting Musculoskeletal denies other (no pain) Skin denies lesions, denies rash Psychiatric/Neurological denies numbness, denies tingling, denies other (dizziness) Physical Exam Vital Signs Vital Signs Date Time Temp Pulse Resp B/P Pulse O2 O2 Flow FiO2 Ox Delivery Rate 12/30 2107 98.1 97 20 149/100 98 General Appearance no apparent distress, obese Eye Exam - bilateral eye normal exam Ear, Nose, Throat right TM and EAC normal, left TM intact but pearly pink and nontender, rios nares normal, mild pharyngeal erythema Neck non-tender, supple, full range of motion Respiratory Status No: respiratory distress, productive cough, non productive cough. Lung Sounds anterior: lungs clear. posterior: lungs clear. bilateral: lungs clear. Cardiovascular regular rate/rhythm, no peripheral edema, no murmur Gastrointestinal normal bowel sounds, non tender, soft Neurologic alert, oriented x 3 Mental status normal mood/affect Skin normal color, warm/dry Lymphatic no adenopathy Medical Decision Making LABS/Meds/Orders Pt receiving controlled substance in ED? No Results/Orders Laboratory Tests 12/29/162107: Group A Strep Screen NOT DETECTED Current Medication Orders Sig/Michele Start time Last Medication Dose Route Stop Time Status Admin Ondansetron HCl 4 MG ONCE ONE 12/29 2144 AC PO 12/29 2145 Ondansetron HCl 0 .STK-MED ONE 12/30 2139 DC .ROUTE Orders Procedure Date/time Status [facility] STREP SCREEN 12/29 2105 Complete Departure Departure Time of Disposition 2139 Disposition DC Home or Self Care(routine) Clinical Impression Primary Impression: Acute viral pharyngitis Secondary Impressions: Nausea Condition STABLE Referrals Rianna Sheffield APRN (Family) keep FU appt for tomorrow morning. Return to ER tonight for any difficulty breathing or swallowing. Patient Instructions DI for Viral Pharyngitis Additional Instructions * No sign of bacterial infection. Likely viral. Virus can take 7-14 days to run their course * Monitor Temp. Tylenol every 4 hours as needed and/or ibuprofen every 6 hours as needed (as long as your primary care doctor has told you that it is ok to take both) for fever/aches/pain. ER if fever no less than 101 despite tylenol and ibuprofen * Encourage fluids, water, gatorade, powerade, pedialyte if infant/toddler/child * warm salt water gargles * warm fluids * sore throat lozenges * sleep elevated * humidifier/vaporizer * * Your throat swab was sent for culture. Those results are typically sent to your primary care. Be sure to follow up in 2-3 days if no improvement so they can review those results and treat if necessary. If you don't have primary care, I recommend you get one but in the mean time, you will have to return to a walk in clinic. Follow up IMMEDIATELY for new or worsening symptoms OR no noticeable improvement over the next 48-72 hours. 911 for difficulty breathing or swallowing. Discharge Counseling Counseled pt/family regarding diagnosis, test results, medications/RX, home care, follow up needs Prescriptions Current Visit Scripts ONDANSETRON HCL (Zofran 4MG Tab) 4 MG PO Q8HP PRN NAUSEA AND VOMITING #6 TAB at 3056
[2016-12-29] MEDS ORDERED: ZOFRAN4 MG PO (21:42)
[2016-12-29 21:43] VITALS: BP 149/100
== END 2016-12-29 21:46 | disposition home or self-care (01) ==
LOC: UTC 20:56
DX: J02.9 Acute pharyngitis, unspecified (principal); B34.9 Viral infection, unspecified; R11.0 Nausea